=== PATIENT | female | born 1970 | race Caucasian/White ===

== ENCOUNTER 2018-02-27 16:14 | Observation (INO) | payer MEDICARE ==
[~2018-02-27] VITALS: Ht 167.6 cm; Wt 68.7 kg
[~2018-02-27 16:14] MED LIST: ABILIFY5 MG PO; ALBUTEROL SULF8.5 GM INH; ALBUTEROL0.63 MG/3 INH; ALDACTONE25 MG PO; CARAFATE1 GM/10 ML PO; DILAUDID4 MG PO; EFFEXOR XR150 MG PO; FUROSEMIDE20 MG PO; GABAPENTIN100 MG PO; HARVONI; K DUR10 MEQ PO; LASIX40 MG PO; METOPROLOL; ONDANSETRON; ONDANSETRON ODT8 MG PO; ORPHENADRINE C100 MG PO; PANTOPRAZOLE SO40 MG PO; PROAIR HFA INH8.5 GM INH; SPIRONOLACTONE25 MG PO; VITAMIN A; VITAMIN D; XIFAXAN550 MG PO; Z.0.EFFEXOR XR150 MG PO; Z.0.SOMA350 MG; Z.1.LANSOPRAZOLE30 M; ZOFRAN ODT4 MG PO; ZOLPIDEM; [UNRECOGNIZED DRUG - OTHER]; [UNRECOGNIZED DRUG - OTHER]; [UNRECOGNIZED DRUG - OTHER] PO
--- OUTSIDE RECORDS SUMMARY | 2018-02-27 16:17 | XMS REPORT | Clinical Summary ---
Author Author [facility] Address Unknown Phone Unavailable Care Team Providers Care All Terrain Vehicle Technician Name Role Phone Jayesh Carpenter MD PCP Allergies No Known Allergies Current Medications Prescription Sig. Disp. Refills Start End Date Status Date ondansetron (ZOFRAN) 4 MG Take 4 mg by mouth every Active tablet 8 (eight) hours as needed for nausea or vomiting. ERGOCALCIFEROL, VITAMIN Take 10,000 Units by Active D2, (VITAMIN D2 ORAL) mouth daily. riFAXimin (XIFAXAN) 550 Take 550 mg by mouth 2 Active mg tablet (two) times a day. furosemide (LASIX) 20 mg Take 20 mg by mouth Active tablet daily. pantoprazole (PROTONIX) Take 40 mg by mouth 2 Active 40 MG EC tablet (two) times a day. venlafaxine XR Take 300 mg by mouth 05/15/20 Discontin (EFFEXOR-XR) 150 MG 24 hr every morning. 17 ued capsule hydroCHLOROthiazide Take 25 mg by mouth once 0 09/23/20 05/15/20 Discontin (HYDRODIURIL) 25 MG daily. 16 17 ued tablet baclofen (LIORESAL) 10 MG Take 10 mg by mouth every 0 05/15/20 Discontin tablet 8 (eight) hours as needed 17 ued for muscle spasms. lactulose 10 gram/15 mL Take 20 g by mouth every 05/15/20 Discontin (15 mL) solution morning. 17 ued traMADol (ULTRAM) 50 mg Take 1 tablet (50 mg 20 tablet 0 01/29/20 tablet total) by mouth every 6 17 17 (six) hours as needed for moderate pain for up to 30 days. sucralfate (CARAFATE) 100 Take 10 mL (1 g total) by 1200 mL 0 06/19/20 mg/mL suspension mouth 4 (four) times a 17 17 day before meals and nightly for 30 days. dicyclomine (BENTYL) 20 Take 1 tablet (20 mg 90 tablet 0 05/22/20 mg tablet total) by mouth 3 (three) 17 17 times a day for 30 days. metoprolol tartrate Take 1 tablet (25 mg 60 tablet 0 05/22/20 (LOPRESSOR) 25 mg tablet total) by mouth 2 (two) 17 17 times a day for 30 days. lactulose 20 gram/30 mL Take 30 mL (20 g total) 500 mL 1 05/22/20 solution by mouth 2 (two) times a 17 17 day as needed (constipation) for up to 30 days. oxymetazoline (AFRIN) 2 sprays into each 15 mL 0 05/22/20 05/25/20 0.05 % nasal spray nostril 2 (two) times a 17 17 day for 3 days. sennosides-docusate Take 2 tablets by mouth 60 tablet 0 05/22/20 sodium (SENNA WITH daily for 30 days. 17 DOCUSATE SODIUM) 8.6-50 mg per tablet Active Problems Problem Noted Date Cirrhosis 05/19/2017 Generalized abdominal pain 10/18/2016 Polysubstance abuse 07/29/2016 Alcohol use disorder, severe, dependence 07/29/2016 Marijuana use, continuous 07/29/2016 Cocaine dependence 07/29/2016 Depressive disorder 07/29/2016 Hepatic encephalopathy 07/26/2016 Chronic hepatitis C without hepatic coma 05/19/2016 Malnutrition 05/19/2016 Pleural effusion associated with hepatic disorder 05/19/2016 Anemia of chronic disease 05/19/2016 Ascites 05/19/2016 Portal hypertension 05/19/2016 Chronic hepatitis C with cirrhosis Overview: Started Harvoni x24 weeks 11/2015 Encounters Date Type Specialty Care Team Description 11/25/2017 Emergency Emergency Medicine 05/18/2017 [facility] General Internal Medicine Des Mike MD - Encounter Sher Wang MD 05/22/2017 Luis Bautista MD Daniel, Jamuna Varughese, MD 05/15/2017 Emergency Emergency Medicine Travis, Vicki Turcios, Hepatic cirrhosis due to chronic hepatitis C infection (Primary Dx); Chronic pain syndrome; Epistaxis; Easy bruising after 02/26/2017 Social History Tobacco Use Types Packs/Day Years Used Date Current Every Day Smoker Cigarettes Alcohol Use Drinks/Week oz/Week Comments No On rehab for alcohol/substance abuse Sex Assigned at Date Recorded Not on file Last Filed Vital Signs Vital Sign Reading Time Taken Blood Pressure 137/84 11/25/2017 8:11 PM SWAGING MACHINE OPERATOR Pulse 77 11/25/2017 8:11 PM SWAGING MACHINE OPERATOR Temperature 37.4 C (99.3 F) 11/25/2017 8:11 PM SWAGING MACHINE OPERATOR Respiratory Rate 23 11/25/2017 8:11 PM SWAGING MACHINE OPERATOR Oxygen Saturation 97% 11/25/2017 8:11 PM SWAGING MACHINE OPERATOR Inhaled Oxygen - - Concentration Weight 74.8 kg (165 lb) 11/25/2017 8:09 PM SWAGING MACHINE OPERATOR Height 167.6 cm (5' 6") 11/25/2017 8:09 PM SWAGING MACHINE OPERATOR Body Mass Index 26.63 11/25/2017 8:09 PM SWAGING MACHINE OPERATOR Plan of Treatment Health Maintenance Due Date Last Done Comments PAP SMEAR 1990 INFLUENZA VACCINE 06/06/2018 Results * XR Abdomen 1 Vw Portable (05/22/2017 5:57 PM) Specimen Performing Laboratory [facility] [address] [place] [address] Narrative EXAMINATION:XR ABDOMEN 1 VW PORTABLE CLINICAL HISTORY:ABDOMINAL PAIN COMPARISON:None. IMPRESSION: Large amount retained stool in colon, constipation is suspected The gallbladder has been removed Degenerative changes are present throughout the bony structures without evidence of a suspicious focal lesion. [facility]-[id number] Procedure Note Interface, Radiology Results Incoming - 05/22/2017 6:11 PM CDT EXAMINATION: XR ABDOMEN 1 VW PORTABLE CLINICAL HISTORY: ABDOMINAL PAIN COMPARISON: None. IMPRESSION: Large amount retained stool in colon, constipation is suspected The gallbladder has been removed Degenerative changes are present throughout the bony structures without evidence of a suspicious focal lesion. [facility]-[id number] * US Abdominal Limited (05/22/2017 11:45 AM) Only the most recent of 2 results within the time period is included. Specimen Performing Laboratory [facility] [address] [place] [address] Narrative EXAMINATION:US ABDOMINAL LIMITED CLINICAL HISTORY:Evaluation for paracentesis COMPARISON:None. IMPRESSION: 1.Limited sonographic evaluation to assess the 4 quadrants of the abdomen was performed. No evidence to suggest ascites. [facility]-[id number] Procedure Note [facility], Radiology Results - 05/22/2017 1:09 PM CDT EXAMINATION: US ABDOMINAL LIMITED CLINICAL HISTORY: Evaluation for paracentesis COMPARISON: None. IMPRESSION: 1. Limited sonographic evaluation to assess the 4 quadrants of the abdomen was performed. No evidence to suggest ascites. [facility]-[id number] * Estimated GFR (05/22/2017 5:00 AM) Only the most recent of 6 results within the time period is included. Component Value Ref Range GFR Non Af Amer >90 mL/min/1.73 m2 GFR Af Amer >90 mL/min/1.73 m2 Comment: Chronic kidney disease: <60 mL/min/1.73m2 Kidney failure: <15 mL/min/1.73m2 The estimated GFR is calculated from the IDMS-traceable Modification of Diet in Renal Disease Equation. The accuracy of the calculation is poor when the creatinine is normal. Calculated values >90 mL/min/1.73m2 are not reported. This equation has not been validated in children (<18 years), women, the elderly (>70 years), or ethnic groups other than Caucasians and Americans. Specimen Performing Laboratory Plasma specimen [facility] DEPARTMENT OF PATHOLOGY AND GENOMIC MEDICINE [address] [place] [address] * Prothrombin time with INR (05/22/2017 5:00 AM) Only the most recent of 6 results within the time period is included. Component Value Ref Range Prothrombin time 16.4 (H) 12.0 - 15.0 sec INR 1.3 Comment: The International Normalized Ratio (INR) is a therapeutic monitoring tool for patients who are stable on oral anticoagulant therapy. An INR of 2.0-3.0 is suggested for deep vein thrombosis/pulmonary embolism. Specimen Performing Laboratory Blood [facility] DEPARTMENT OF PATHOLOGY AND GENOMIC MEDICINE [address] [place] [id number] * CBC with platelet and differential (05/22/2017 5:00 AM) Only the most recent of 6 results within the time period is included. Component Value Ref Range WBC 5.99 4.50 - 11.00 k/uL RBC 3.62 (L) 4.20 - 5.50 m/uL HGB 12.5 12.0 - 16.0 g/dL HCT 36.0 (L) 37.0 - 47.0 % MCV 99.4 82.0 - 100.0 fL MCH 34.5 (H) 27.0 - 34.0 pg MCHC 34.7 31.0 - 37.0 g/dL RDW - SD 60.0 (H) 37.0 - 55.0 fL MPV 13.3 (H) 8.8 - 13.2 fL Platelet count 103 (L) 150 - 400 k/uL Nucleated RBC 0.00 /100 WBC Neutrophils 28.2 (L) 39.0 - 69.0 % Lymphocytes 45.1 (H) 25.0 - 45.0 % Monocytes 14.9 (H) 0.0 - 10.0 % Eosinophils 10.4 (H) 0.0 - 5.0 % Basophils 1.2 (H) 0.0 - 1.0 % Immature granulocytes 0.2Comment: "Immature granulocytes" 0.0 - 1.0 % (promyelocytes, myelocytes, metamyelocytes) Specimen Performing Laboratory Blood [facility] DEPARTMENT OF PATHOLOGY AND [facility] MEDIC[facility] [address] [place] [address] * Hepatic function panel (05/22/2017 5:00 AM) Only the most recent of 3 results within the time period is included. Component Value Ref Range Albumin 2.5 (L) 3.5 - 5.0 g/dL Total bilirubin 1.7 (H) 0.0 - 1.2 mg/dL Bilirubin direct 0.9 (H) 0.0 - 0.3 mg/dL Alkaline phosphatase 207 (H) 35 - 104 U/L Protein 6.7 6.3 - 8.3 g/dL Comment: [place] 4.6-7.0 g/dL 1 week 4.4-7.6 g/dL 7 months-1year 5.1-7.3 g/dL 1-2 years 5.6-7.5 g/dL >3 years 6.0-8.0 g/dL 18-150 6.3-8.3 g/dL ALT 87 (H) 5 - 50 U/L AST 172 (H) 10 - 35 U/L Specimen Performing Laboratory Plasma specimen [facility] DEPARTMENT OF PATHOLOGY AND [facility] [address] [place] [address] * Basic metabolic panel (05/22/2017 5:00 AM) Only the most recent of 2 results within the time period is included. Component Value Ref Range Sodium 140 135 - 148 mEq/L Potassium 4.0 3.5 - 5.0 mEq/L Chloride 106 98 - 112 mEq/L CO2 23 (L) 24 - 31 mEq/L Anion gap 11 7 - 15 mEq/L Comment: Starting from February , anion gap calculation no longer incorporates potassium. Please note the change. BUN 7 6 - 20 mg/dL Creatinine 0.6 0.5 - 0.9 mg/dL Glucose 92 65 - 99 mg/dL Calcium 8.2 (L) 8.3 - 10.2 mg/dL Specimen Performing Laboratory Plasma specimen [facility] DEPARTMENT OF PATHOLOGY AND GENOMIC MEDICINE [address] [place] [address] * Bilirubin direct (05/21/2017 5:58 AM) Component Value Ref Range Bilirubin direct 1.2 (H) 0.0 - 0.3 mg/dL Specimen Performing Laboratory Plasma specimen [facility] DEPARTMENT OF PATHOLOGY AND GENOMIC MEDICINE [address] [place] [id number] * Comprehensive metabolic panel (05/21/2017 5:58 AM) Only the most recent of 4 results within the time period is included. Component Value Ref Range Sodium 140 135 - 148 mEq/L Potassium 3.7 3.5 - 5.0 mEq/L Chloride 106 98 - 112 mEq/L CO2 24 24 - 31 mEq/L Anion gap 10 7 - 15 mEq/L Comment: Starting from February , anion gap calculation no longer incorporates potassium. Please note the change. BUN 7 6 - 20 mg/dL Creatinine 0.5 0.5 - 0.9 mg/dL Glucose 88 65 - 99 mg/dL Calcium 8.2 (L) 8.3 - 10.2 mg/dL Protein 6.7 6.3 - 8.3 g/dL Comment: 4.6-7.0 g/dL 1 week 4.4-7.6 g/dL 7 months-1year 5.1-7.3 g/dL 1-2 years 5.6-7.5 g/dL >3 years 6.0-8.0 g/dL 18-150 6.3-8.3 g/dL Albumin 2.6 (L) 3.5 - 5.0 g/dL A/G ratio 0.6 (L) 0.7 - 3.8 Alkaline phosphatase 150 (H) 35 - 104 U/L AST 156 (H) 10 - 35 U/L ALT 84 (H) 5 - 50 U/L Total bilirubin 2.3 (H) 0.0 - 1.2 mg/dL Specimen Performing Laboratory Plasma specimen [facility] DEPARTMENT OF PATHOLOGY AND GENOMIC MEDICINE [address] [place] [address] * Urine drugs of abuse screen (05/19/2017 3:30 PM) Component Value Ref Range Amphetamine screen, urine Negative Barbiturate screen, urine Negative Benzodiazepine screen, Negative urine Cannabinoid screen, urine Positive (A) Cocaine screen, urine Negative Methadone metabolite Negative (EDDP), urine Opiates screen, urine Negative Oxycodone screen, urine Negative Phencyclidine screen, Negative urine Tricyclic screen, urine Negative Comment: Drug screen minimum concentration of detectability Amphetamines 1000 ng/mL Barbiturates 200 ng/mL Benzodiazepines 300 ng/mL Cocaine 300 ng/mL Methadone 3 00 ng/mL Opiates 300 ng/mL Oxycodone 3 00 ng/mL Phencyclidine 25 ng/mL Cannabinoids 50 ng/mL Tricyclics 1000 ng/mL Negative test results indicates presumptive evidence of lack of clinically significant drug concentration in this urine specimen. Positive test results are presumptive evidence of clinically significant drug concentration in this urine specimen. Testing performed for medical purposes only. Specimen Performing Laboratory Urine [facility] [place] [address] * Hepatitis C virus quantitative by PCR (05/19/2017 6:53 AM) Component Value Ref Range Hepatitis C quantitative, 1,290,000 (A) Not-Detected IU/mL PCR Hepatitis C quantitative, See link below for PDF Lab ReportComment: Case PCR Number: [id number] Specimen Performing Laboratory Blood [facility] DEPARTMENT OF PATHOLOGY AND GENOMIC MEDICINE [address] [place] [address] * XR Chest 2 Vw (05/18/2017 7:03 PM) Specimen [place] [address] Narrative EXAMINATION:XR CHEST 2 VW CLINICAL HISTORY:46 years Female Cough, hemoptysis [facility] COMPARISON:01/09/2017 IMPRESSION: 1.Heart size is slightly prominent. Central vasculature is normal. 2.Mild prominence of the interstitium, probably some chronic change. No convincing consolidation or effusion. 3.Old right-sided rib fractures. Surgical clips over the upper abdomen. [facility]-[id number] Procedure Note Interface, Radiology Results Incoming - 05/18/2017 7:10 PM CDT EXAMINATION: XR CHEST 2 VW CLINICAL HISTORY:46 years Female Cough, hemoptysis [facility] COMPARISON: 01/09/2017 IMPRESSION: 1. Heart size is slightly prominent. Central vasculature is normal. 2. Mild prominence of the interstitium, probably some chronic change. No convincing consolidation or effusion. 3. Old right-sided rib fractures. Surgical clips over the upper abdomen. [facility]-[id number] * CT Abdomen Pelvis W Contrast (05/18/2017 6:53 PM) Only the most recent of 2 results within the time period is included. Specimen Performing Laboratory [facility] [address] [place] [address] Narrative EXAMINATION:CT ABDOMEN PELVIS W CONTRAST CLINICAL HISTORY:ABDOMINAL PAIN TECHNIQUE: Multiple axial images of the abdomen and pelvis were obtained following intravenous administration of iodinated contrast. Sagittal and coronal computerized reformatted images were also obtained. CT images were obtained using low-dose technique with automated exposure control. COMPARISON:05/15/2017 IMPRESSION: 1.Status post cholecystectomy. There is no biliary duct dilation. 2.Status post splenectomy. Couple small splenule is noted in the left upper abdomen. 3.Liver, pancreas, adrenal glands and kidneys are within normal limits. Portal vein and splenic vein are patent. Small periesophageal varices present. There is minimal nonspecific haziness in the mesenteric root. 4.There is no evidence of intestinal obstruction or inflammation. Appendix is normal. 5.There is no abdominal or pelvic adenopathy or ascites. Aorta is normal in caliber. 6.Bladder is unremarkable. Status post hysterectomy. There are no adnexal masses. 7.Lung bases are clear. Healed and ununited right rib fractures noted. [facility]-[id number] Procedure Note Interface, Radiology Results Incoming - 05/18/2017 8:31 PM CDT EXAMINATION: CT ABDOMEN PELVIS W CONTRAST CLINICAL HISTORY: ABDOMINAL PAIN TECHNIQUE: Multiple axial images of the abdomen and pelvis were obtained following intravenous administration of iodinated contrast. Sagittal and coronal computerized reformatted images were also obtained. CT images were obtained using low-dose technique with automated exposure control. COMPARISON: 05/15/2017 IMPRESSION: 1. Status post cholecystectomy. There is no biliary duct dilation. 2. Status post splenectomy. Couple small splenule is noted in the left upper abdomen. 3. Liver, pancreas, adrenal glands and kidneys are within normal limits. Portal vein and splenic vein are patent. Small periesophageal varices present. There is minimal nonspecific haziness in the mesenteric root. 4. There is no evidence of intestinal obstruction or inflammation. Appendix is normal. 5. There is no abdominal or pelvic adenopathy or ascites. Aorta is normal in caliber. 6. Bladder is unremarkable. Status post hysterectomy. There are no adnexal masses. 7. Lung bases are clear. Healed and ununited right rib fractures noted. [facility]-[id number] * Urine culture (05/18/2017 3:20 PM) Component Value Ref Range Urine culture SEE COMMENTComment: Bacteriuria screen negative. Specimen Performing Laboratory [facility] DEPARTMENT OF PATHOLOGY AND GENOMIC MEDICINE [address] [place] [address] * Ova & parasites, gross examination (05/18/2017 1:00 PM) Component Value Ref Range Ova & parasites gross Brown formed exam Comment: Specimen Information Specimen Source: Stool Specimen Site: Nonpreserved Specimen Performing Laboratory Stool - Nonpreserved [facility] DEPARTMENT OF PATHOLOGY AND GENOMIC MEDICINE [address] [place] [address] * Ova & parasites, trichrome stain (05/18/2017 1:00 PM) Component Value Ref Range Ova & parasites trichrome No ova or Parasites seen. stain Comment: Specimen Information Specimen Source: Stool Specimen Site: Nonpreserved Specimen Performing Laboratory [facility] DEPARTMENT OF PATHOLOGY AND GENOMIC MEDICINE [address] [place] [address] * Urinalysis screen and microscopy, with reflex to culture (05/18/2017 1:00 PM) Component Value Ref Range Specimen site Clean catch Color, UA Yellow Appearance, UA Clear Specific gravity, UA 1.012 1.001 - 1.035 pH, UA 7.0 5.0 - 8.5 Protein, UA Negative Negative Glucose, UA Negative Negative Ketones, UA Negative Negative Bilirubin, UA Negative Negative Blood, UA Negative Negative Nitrite, UA Negative Negative Urobilinogen, UA <2.0 <2.0 Leukocyte esterase, UA Negative Negative Epithelial cells, UA 3 /HPF WBC, UA 1 0 - 4 /HPF RBC, UA <1 0 - 2 /HPF Bacteria, UA Few None seen Yeast, UA None seen Yeast with pseudohyphae, None seen UA Specimen Performing Laboratory Urine [facility] DEPARTMENT OF PATHOLOGY AND [address] [address] * Ova & parasites, concentrated examination (05/18/2017 1:00 PM) Component Value Ref Range Ova & parasites No Ova or Parasites seen. concentrated exam Comment: Specimen Information Specimen Source: Stool Specimen Site: Nonpreserved Specimen Performing Laboratory [facility] [place] [address] * Fecal leukocytes smear (05/18/2017 1:00 PM) Component Value Ref Range Fecal leukocytes Rare fecal leukocytes Comment: Specimen Information Specimen Source: Stool Specimen Site: Nonpreserved Specimen Performing Laboratory [facility] [place] [address] * Ova & parasites, direct examination (05/18/2017 1:00 PM) Component Value Ref Range Ova & parasites direct Direct examination not performed on formed stools. exam Comment: Specimen Information Specimen Source: Stool Specimen Site: Nonpreserved Specimen Performing Laboratory [facility] [place] [address] * Blood culture, aerobic & anaerobic (05/18/2017 12:57 PM) Only the most recent of 2 results within the time period is included. Component Value Ref Range Blood culture isolate No growth after 5 days of incubation. Comment: Specimen Information Specimen Source: Blood Specimen Site: Unspecified Specimen Performing Laboratory Blood [facility] [place] [address] * Alpha fetoprotein (05/18/2017 12:56 PM) Component Value Ref Range Alpha fetoprotein 12.0 (H) 0.0 - 8.3 ng/mL Comment: The Hieu 8000 AFP immunoassay was used. Results obtained with different assay methods or kits should not be used interchangeably and may be different. Specimen Performing Laboratory Serum [facility] DEPARTMENT [place] [address] * Phosphorus level (05/18/2017 12:56 PM) Component Value Ref Range Phosphorus 2.4 2.4 - 4.5 mg/dL Specimen Performing Laboratory Plasma specimen [facility] [place] [address] * Magnesium level (05/18/2017 12:56 PM) Only the most recent of 2 results within the time period is included. Component Value Ref Range Magnesium 2.1 1.6 - 2.6 mg/dL Specimen Performing Laboratory Plasma specimen [facility] DEPARTMENT OF PATHOLOGY AND GENOMIC MEDICINE [address] [place] [address] * Partial thromboplastin time, activated (05/15/2017 12:25 PM) Component Value Ref Range PTT 34.5 23.0 - 36.0 sec Comment: PTT therapeutic range for unfractionated heparin is 61.0-112.0 seconds which corresponds to Anti-Xa 0.3-0.7 U/ml. Specimen Performing Laboratory Blood [facility] DEPARTMENT OF PATHOLOGY AND GENOMIC MEDICINE [address] [address] * Type and screen (05/15/2017 12:25 PM) Component Value Ref Range ABO grouping A Rh type POS Antibody screen NEG Specimen Performing Laboratory Blood [facility] DEPARTMENT OF PATHOLOGY AND GENOMIC MEDICINE [address] [place] [address] * Lipase level (05/15/2017 12:25 PM) Component Value Ref Range Lipase 35 13 - 60 U/L Specimen Performing Laboratory Plasma specimen [facility] DEPARTMENT OF PATHOLOGY AND GENOMIC MEDICINE [address] [address] after 02/26/2017 Insurance Payer Benefit Subscriber ID Type Phone Address Plan / Group [facility] MEDICARE AARP xxxxxxxxx [facility] [place] [place]CR Home: [address] [place], [place] [phone] [place] [address] [address] [facility] [facility] 1970 Home: [address] [place], [place] [phone] [place] [address]
--- OUTSIDE RECORDS SUMMARY | 2018-02-27 16:17 | XMS REPORT | Continuity of Care Document ---
Author Author [facility] Organization [facility] Address [address] [place] [address] Phone Unavailable Care Team Providers Care Independent Film Maker Name Role Phone KATIE ALICEA MD PCP Insurance Providers Guarantor Froy Streeter Address [address] [place] [address] Email [email or web address] Payer [employer] Medicare Complete Policy Number [id number] Subscriber's Name Froy Streeter Relationship 18 Self / Same As Patient Effective Date 17 Advance Directives Directive Response Recorded Date/Time Does the patient have an advance directive? No 01/29/18 11:37pm If yes, is advance directive on file with [facility]? No 01/29/18 11:37pm If not on [facility] with [facility] will patient provide a copy? No 01/29/18 11:37pm Do you have a Directive to Physician? No 01/29/18 1:27pm Do you have a Medical Power of Handwriting Expert? No 01/29/18 1:27pm Do you have an out of hospital Do Not Resuscitate Order? No 01/29/18 1:27pm Do you have any special needs we should be aware of? No 01/29/18 1:27pm Do you have a support person here with you today? Yes 01/29/18 1:27pm Did patient receive Notice of Privacy Practices? Yes 01/29/18 1:27pm Did patient receive patient rights and responsibilities? Yes 01/29/18 1:27pm Problems Medical Problem Onset Date Status Abdominal pain Unknown Ascites due to alcoholic cirrhosis 05/15/2015 Acute Nausea & vomiting Unknown Medications Current Home Medications Medication Dose Units Route Directions Days Qty Instructions Start Date Furosemide (Lasix) 40 Mg Tablet 40 Mg Oral Daily as needed for Nasal Congestion 30 Tab Harvoni Ondansetron (Zofran Odt) 4 Mg Tab.rapdis 4 Mg Oral Twice A Day Pantoprazole Sodium (Protonix) 40 Mg Tablet.dr 40 Mg Oral Daily Rifaximin (Xifaxan) 550 Mg Tablet 550 Mg Oral Twice A Day Venlafaxine Hcl (Effexor Xr) 150 Mg Cap.er.24h 150 Mg Oral Daily Past Home Medications Medication Directions Ordered Status Albuterol Sulfate (Albuterol Sulfate Hfa) 8.5 Gm Hfa.aer.ad, 2 Sprays Inhalation Every 4 Hours as needed for Shortness Of Breath Discontinued Albuterol Sulfate 0.63 Mg/3 Ml Vial.neb, 0.63 Mg Inhalation Four Times Daily as needed for Shortness Of Breath Discontinued Albuterol Sulfate (Proair Hfa Inhaler*) 8.5 Gm Inh, 2 Sprays Inhalation Every 4 Hours as needed for Shortness Of Breath Discontinued Aripiprazole (Abilify) 5 Mg Tablet, 5 Mg Oral Daily Discontinued Carisoprodol (Soma) 350 Mg Tablet, Discontinued Furosemide 20 Mg Tablet, 20 Mg Oral Daily Discontinued Gabapentin 100 Mg Capsule, 100 Mg Oral Three Times A Day Discontinued Hydromorphone Hcl (Dilaudid) 4 Mg Tablet, 4 Mg Oral Bidprn Discontinued Hydromorphone Hcl 4 Mg Tablet, Discontinued Lansoprazole 30 Mg Capsule., Discontinued Metoprolol , Discontinued Ondansetron (Ondansetron Odt) 8 Mg Tab.rapdis, 4 Mg Oral Daily Discontinued Ondestaron , Discontinued Orphenadrine Citrate (Norflex) 100 Mg Tab, 100 Mg Oral Every 12 Hours Discontinued Oxymorphone Hcl (Opana) 10 Mg Tablet, Oral Daily Discontinued Potassium Chloride (K Dur*) 10 Meq Tabcr, 20 Meq Oral Daily Discontinued Spironolactone 25 Mg Tablet, 50 Mg Oral Daily Discontinued Spironolactone (Aldactone) 25 Mg Tablet, 50 Mg Oral Twice A Day Discontinued Sucralfate (Carafate) 1 Gm/10 Ml Oral.susp, 1 Gm Oral Daily Discontinued Venlafaxine Hcl (Effexor Xr) 150 Mg Cap.sr.24h, Oral Daily Discontinued Vitamin A , Discontinued Vitamin D , Discontinued Xisaxin , Discontinued Zolpidem , Discontinued Social History Social History Problem Response Recorded Date/Time Onset Date Status Hx Psychiatric Problems Y - pain 01/29/2018 11:37pm Not Applicable Not Applicable Hx Eating Disorder No 01/29/2018 11:37pm Not Applicable Not Applicable Hx Substance Use Disorder No 01/29/2018 11:37pm Not Applicable Not Applicable Hx Depression Yes 01/29/2018 11:37pm Not Applicable Not Applicable Hx Alcohol Use Y - drank on monday of mother 01/29/2018 11:37pm Not Applicable Not Applicable Hx Substance Use Treatment No 01/29/2018 11:37pm Not Applicable Not Applicable Hx Physical Abuse No 01/29/2018 11:37pm Not Applicable Not Applicable Smoking Status Start Date Stop Date Former smoker Hospital Discharge Instructions No hospital discharge instruction information available. Plan of Care Discharge Date 02/04/18 10:20am Disposition HOME, SELF-CARE Instructions/Education Provided Abdominal Pain - Adult Prescriptions See Medication Section Additional Instructions/Education Cardiac Diet Functional Status Query Response Date Recorded Ambulation Ability Minimum Assistance January 29, 2018 11:42pm Toileting Ability Independent February 03, 2018 6:12pm Allergies, Adverse Reactions, Alerts No known allergies. Immunizations No immunization information available. Vital Signs Acute Vital Signs Vital Response Date/Time Temperature (Fahrenheit) 98.1 degrees F (97.6 - 99.5) 02/04/2018 4:00am Pulse Pulse Rate (adult) 68 bpm (60 - 90) 02/04/2018 4:00am Respiratory Rate 18 bpm (12 - 24) 02/04/2018 4:00am Blood Pressure 146/81 mm Hg 02/04/2018 4:00am Height 5 ft 6 in 01/29/2018 11:29am Weight 199.50 lb 02/04/2018 12:00am Body Mass Index 32.2 kg/m^2 02/04/2018 12:00am Results Laboratory Results Test Name Result Units Flags Reference Collection Date/Time Result Date/ Time Comments Urine Amorphous Sediment MANY H FEW 06/14/2017 6:49pm 06/14/2017 10: 14pm Urine Test NEGATIVE NEGATIVE 06/14/2017 6:49pm 06/14/2017 10:07pm White Blood Count 7.63 x10e3/uL 4.8-10.8 02/03/2018 6:3002/03/2018 8 :11am Red Blood Count 3.57 x10e6/uL L 3.6-5.1 02/03/2018 6:3002/03/2018 8: 11am Hemoglobin 12.1 g/dL 12.0-16.0 02/03/2018 6:3002/03/2018 8:11am Hematocrit 33.1 % L 34.2-44.1 02/03/2018 6:3002/03/2018 8:11am Mean Corpuscular Volume 92.7 fL 81-99 02/03/2018 6:3002/03/2018 8: 11am Mean Corpuscular Hemoglobin 33.9 pg H 28-32 02/03/2018 6:302017 8:11am Mean Corpuscular Hemoglobin Concent 36.6 g/dL H 31-35 02/03/2018 6:3002/03/2018 8:11am Red Cell Distribution Width 19.6 % H 11.7-14.4 02/03/2018 6:302017 8:11am Platelet Count 110 x10e3/uL L 140-360 02/03/2018 6:3002/03/2018 8: 11am Neutrophils (%) (Auto) 36.0 % L 38.7-80.0 02/03/2018 6:3002/03/2018 8 :11am Lymphocytes (%) (Auto) 47.2 % H 18.0-39.1 02/03/2018 6:3002/03/2018 8 :11am Monocytes (%) (Auto) 13.8 % H 4.4-11.3 02/03/2018 6:02/03/2018 8: 11am Eosinophils (%) (Auto) 1.8 % 0.0-6.0 02/03/2018 6:02/03/2018 8: 11am Basophils (%) (Auto) 0.8 % 0.0-1.0 02/03/2018 6:02/03/2018 8:11am IM GRANULOCYTES % 0.4 % 0.0-1.0 02/03/2018 6:02/03/2018 8:11am Neutrophils # (Auto) 2.8 2.1-6.9 02/03/2018 6:02/03/2018 8:11am Lymphocytes # (Auto) 3.6 H 1.0-3.2 02/03/2018 6:02/03/2018 8: 11am Monocytes # (Auto) 1.1 H 0.2-0.8 02/03/2018 6:02/03/2018 8:11am Eosinophils # (Auto) 0.1 0.0-0.4 02/03/2018 6:02/03/2018 8:11am Basophils # (Auto) 0.1 0.0-0.1 02/03/2018 6:02/03/2018 8:11am Absolute Immature Granulocyte (auto 0.03 x10e3/uL 0-0.1 02/03/2018 6: 02/03/2018 8:11am Differential Total Cells Counted 100 02/01/2018 8:0702/01/2018 11:49am Neutrophils % (Manual) 45 % 40-74 02/01/2018 8:0702/01/2018 11:49am Band Neutrophils % 2 % 01/30/2018 6:50am 01/30/2018 12:19pm Lymphocytes % (Manual) 44 % 19-48 02/01/2018 8:0702/01/2018 11:49am Monocytes % (Manual) 9 % 3.4-9.0 02/01/2018 8:02/01/2018 11:49am Eosinophils % (Manual) 2 % 0-7 02/01/2018 8:0702/01/2018 11:49am Reactive Lymphocytes 1 01/30/2018 6:50am 01/30/2018 12:19pm Smudge Cells FEW 02/01/2018 8:07am 02/01/2018 11:49am Platelet Estimate SLIGHTLY DECREASED 02/01/2018 8:07am 02/01/2018 11:49am Platelet Morphology Comment NORMAL 02/01/2018 8:07am 02/01/2018 11: 49am Hypochromasia SLIGHT 02/01/2018 8:07am 02/01/2018 11:49am Poikilocytosis SLIGHT 02/01/2018 8:07am 02/01/2018 11:49am Anisocytosis SLIGHT 02/01/2018 8:07am 02/01/2018 11:49am Macrocytosis MODERATE 02/01/2018 8:07am 02/01/2018 11:49am Target Cells FEW 02/01/2018 8:07am 02/01/2018 11:49am Red Cell Morphology Comment ABNORMAL 02/01/2018 8:07am 02/01/2018 11:49am Prothrombin Time 18.5 seconds H 11.9-14.5 02/01/2018 5:00am 02/01/2018 5 :37am Prothromb Time International Ratio 1.67 02/01/2018 5:00am 2017 5:37am Oral Anticoagulant Therapy INR Values: 1. Low Intensity Therapy 1.5 - 2.0 2. Moderate Intensity Therapy 2.0 - 3.0 3. High Intensity Therapy(1) 2.5 - 3.5 4. High Intensity Therapy(2) 3.0 - 4.0 5. Panic Value INR > 5.0 Activated Partial Thromboplast Time 32.0 seconds 23.8-35.5 02/01/2018 5: 00am 02/01/2018 5:37am Urine Color ORANGE H YELLOW 01/29/2018 11:35am 01/29/2018 12:24pm Urine Clarity SL CLOUDY CLEAR 01/29/2018 11:35am 01/29/2018 12:24pm Urine Specific Victor 1.020 1.010-1.025 01/29/2018 11:35am 2017 12:10pm Urine pH 6 5 - 7 01/29/2018 11:35am 01/29/2018 12:10pm Urine Leukocyte Esterase TRACE H NEGATIVE 01/29/2018 11:35am 2017 12:10pm Urine Nitrite NEGATIVE NEGATIVE 01/29/2018 11:35am 01/29/2018 12: 10pm Urine Protein 1+ H NEGATIVE 01/29/2018 11:35am 01/29/2018 12:10pm Urine Glucose (UA) NEGATIVE NEGATIVE 01/29/2018 11:35am 01/29/2018 12 :10pm Urine Ketones TRACE H NEGATIVE 01/29/2018 11:35am 01/29/2018 12:10pm Urine Urobilinogen 12 mg/dL H 0.2 - 1 01/29/2018 11:35am 01/29/2018 12: 10pm Urine Bilirubin 3+ H NEGATIVE 01/29/2018 11:35am 01/29/2018 12:10pm Urine Blood 2+ H NEGATIVE 01/29/2018 11:35am 01/29/2018 12:10pm Urine WBC 6-10 /HPF H 0-5 01/29/2018 11:35am 01/29/2018 12:24pm Urine RBC 6-10 /HPF H 0-5 01/29/2018 11:35am 01/29/2018 12:24pm Urine Bacteria RARE /HPF NONE 01/29/2018 11:35am 01/29/2018 12:24pm Urine Epithelial Cells FEW /LPF NONE 01/29/2018 11:35am 01/29/2018 12: 24pm Urine Hyaline Casts 0-1 0-1 01/29/2018 11:35am 01/29/2018 12:24pm Urine Fine Granular Casts 1-5 H 0 01/29/2018 11:35am 01/29/2018 12: 24pm Sodium Level 135 mmol/L L 136-145 02/03/2018 6:30am 02/03/2018 8:49am Potassium Level 3.7 mmol/L 3.5-5.1 02/03/2018 6:30am 02/03/2018 8:49am Chloride Level 105 mmol/L 98-107 02/03/2018 6:30am 02/03/2018 8:49am Carbon Dioxide Level 27 mmol/L -02/03/2018 6:30am 02/03/2018 8: 49am Anion Gap 6.7 mmol/L L 8-16 02/03/2018 6:30am 02/03/2018 8:49am Blood Urea Nitrogen 6 mg/dL L 05-3102/03/2018 6:30am 02/03/2018 8:49am Creatinine 0.59 mg/dL 0.57-1.11 02/03/2018 6:3002/03/2018 8:49am BUN/Creatinine Ratio 10 6-25 02/03/2018 6:3002/03/2018 8:49am Estimat Glomerular Filtration Rate > 60 ML/MIN 60- 02/03/2018 6:30 8:49am Ranges were taken from the National Kidney Disease Education Program and the National [employer] literature. Reference ranges: 60 or greater: Normal 16-59 (for 3 consecutive months): Chronic kidney disease 15 or less: Kidney failure Glucose Level 67 mg/dL L 74-118 02/03/2018 6:3002/03/2018 8:49am Calcium Level 7.9 mg/dL L 8.4-10.2 02/03/2018 6:3002/03/2018 8:49am Magnesium Level 1.8 MG/DL 1.3-2.1 01/29/2018 1:00pm 01/29/2018 1:37pm Total Bilirubin 4.9 mg/dL H 0.2-1.2 02/03/2018 6:3002/03/2018 8:49am Aspartate Amino Transf (AST/SGOT) 135 IU/L H 5-34 02/03/2018 6:30 8:49am Alanine Aminotransferase (ALT/SGPT) 67 IU/L H 0-55 02/03/2018 6:30 8:49am Ammonia 113 UG/DL 31-123 01/29/2018 8:25pm 01/29/2018 8:51pm Total Protein 6.2 g/dL L 6.5-8.1 02/03/2018 6:3002/03/2018 8:49am Albumin 2.0 g/dL L 3.5-5.0 02/03/2018 6:3002/03/2018 8:49am Globulin 4.2 g/dL H 2.3-3.5 02/03/2018 6:3002/03/2018 8:49am Albumin/Globulin Ratio 0.5 L 0.8-2.0 02/03/2018 6:3002/03/2018 8: 49am Alkaline Phosphatase 140 IU/L 40-150 02/03/2018 6:30am 02/03/2018 8: 49am B-Type Natriuretic Peptide 59.3 pg/mL 0-100 01/29/2018 1:00pm 2017 1:40pm Creatine Kinase 57 IU/L 29-168 01/29/2018 1:00pm 01/29/2018 1:37pm Creatine Kinase MB 1.20 ng/mL 0-5.0 01/29/2018 1:00pm 01/29/2018 1: 43pm Troponin I 0.006 ng/mL 0-0.300 01/29/2018 1:00pm 01/29/2018 1:43pm Amylase Level 37 U/L 25-125 01/30/2018 6:50am 01/30/2018 8:10am Lipase 23 U/L 8-78 01/30/2018 6:50am 01/30/2018 8:10am Gamma Glutamyl Transpeptidase 48 IU/L 0-60 01/29/2018 1:00pm 2017 3:28am Performed at: [facility] [id number] Plate Glass Installer: Romel Waters MD, Phone: [phone] Procedures Procedure Status Date Provider(s) EGD with biopsy Completed 02/01/18 DIANN MATSON MD EGD with biopsy Completed 02/01/18 DIANN MATSON MD Computed tomography of abdomen and pelvis with contrast Active 01/29/18 MARCIANO PRIETO NP Magnetic resonance cholangiopancreatography (MRCP) without contrast Active MARCIANO PRIETO NP Encounters Encounter Location Arrival/Admit Date Discharge/Depart Date Attending Provider Discharged Inpatient [facility] 01/29/18 5:02pm 02/04/18 10:20am KATIE ALICEA MD Departed Emergency Room [facility] 06/14/17 5:53pm 12:25am JENNIFER MICHELLE MD
[2018-02-27] MEDS ORDERED: SODIUM CHLORIDE 0.9% 1000ML 1,000 ML IV STA (16:21)
[2018-02-27] MEDS ORDERED: MORPHINE SULFATE 4 MG/ML SYR IV STA (16:21)
[2018-02-27] MEDS ORDERED: ONDANSETRON HCL INJ 2 MG/ML VIAL IV STA (16:21)
[2018-02-27] MEDS ORDERED: MORPHINE SULFATE 2 MG/ML SYR ONE (16:57)
[2018-02-27 17:19] LABS: BASOPHILS # (AUTO) 0.1 (0.0-0.1); BASOPHILS % 0.8 % (0.0-1.0); EOSINOPHILS # (AUTO) 0.1 (0.0-0.4); EOSINOPHILS % 2.1 % (0.0-6.0); HEMATOCRIT 34.4 % (34.2-44.1); HEMOGLOBIN 12.2 g/dL (12.0-16.0); LYMPHOCYTES # (AUTO) 2.9 (1.0-3.2); LYMPHOCYTES % 47.6 % (18.0-39.1); MEAN CORPUSCULAR HEMOGLOBIN 34.3 pg (28-32); MEAN CORPUSCULAR HGB CONC 35.5 g/dL (31-35); MEAN CORPUSCULAR VOLUME 96.6 fL (81-99); MONOCYTES # (AUTO) 0.6 (0.2-0.8); MONOCYTES % 10.4 % (4.4-11.3); NEUTROPHILS # (AUTO) 2.4 (2.1-6.9); NEUTROPHILS % 38.9 % (38.7-80.0); PLATELET COUNT 108 x10e3/uL (140-360); RED BLOOD COUNT 3.56 x10e6/uL (3.6-5.1); RED CELL DISTRIBUTION WIDTH 17.6 % (11.7-14.4)
[2018-02-27] MEDS ORDERED: MORPHINE SULFATE 5 MG/ML VIAL IV ONE (17:30)
[2018-02-27 17:35] LABS: CLARITY,URINE CLEAR (CLEAR); COLOR,URINE AMBER (YELLOW)
[2018-02-27 17:36] LABS: BILIRUBIN,URINE NEGATIVE (NEGATIVE); KETONES,URINE NEGATIVE (NEGATIVE); LEUKOCYTE ESTERASE ,URINE NEGATIVE (NEGATIVE); NITRITE,URINE NEGATIVE (NEGATIVE); PROTEIN,URINE DIPSTICK NEGATIVE (NEGATIVE); URINE UROBILINOGEN 0.2 mg/dL (0.2 - 1)
[2018-02-27 17:41] LABS: ALANINE AMINOTRANSFERASE 71 IU/L (0-55); ALBUMIN 2.3 g/dL (3.5-5.0); ALBUMIN/GLOBULIN RATIO 0.5 (0.8-2.0); ALKALINE PHOSPHATASE 159 IU/L (40-150); ANION GAP 8.7 mmol/L (8-16); BLOOD UREA NITROGEN < 5 mg/dL (7-26); BUN/CREATININE RATIO 8 (6-25); CALCIUM 8.2 mg/dL (8.4-10.2); CARBON DIOXIDE 25 mmol/L (22-29); CHLORIDE 107 mmol/L (98-107); EST GLOMERULAR FILTRATION RATE > 60 ML/MIN (60-); GLUCOSE 125 mg/dL (74-118); LIPASE 52 U/L (8-78); SODIUM 138 mmol/L (136-145)
[2018-02-27 17:42] LABS: POTASSIUM 2.7 mmol/L (3.5-5.1)
[2018-02-27] MEDS ORDERED: MORPHINE SULFATE 2 MG/ML SYR IV NR (17:45)
[2018-02-27 17:49] LABS: EPITHELIAL CELLS,URINE RARE /LPF
--- NOTE | 2018-02-27 18:27 | Diagnostic Imaging Report ---
Exam: Abdominal film Clinical History: Abdominal pain Comparison: None. DISCUSSION: Frontal view of the abdomen shows a nonobstructive bowel gas pattern with mild amount of retained stool. Right upper quadrant clips. There are no abnormal calcifications. No acute bone abnormality. IMPRESSION: 1. Nonobstructive bowel gas pattern. Signed by: Dr. Frankie Ray M.D. on 02/27/2018 6:23 PM
[2018-02-27] MEDS ORDERED: POTASSIUM CHLORIDE 20MEQ/100ML 100 ML IV ONE (18:30)
[2018-02-27] MEDS ORDERED: ONDANSETRON HCL INJ 2 MG/ML VIAL IV PRN (18:45)
[2018-02-27] MEDS ORDERED: ONDANSETRON HCL 4 MG ORAL DISINTEGRATING TAB PO PRN (19:00)
[2018-02-27] MEDS: SODIUM CHLORIDE 0.9% 1000ML 1,000 ML IV SCH ×2 (19:06→23:05)
--- OUTSIDE RECORDS SUMMARY | 2018-02-27 20:29 | XMS REPORT | Clinical Summary ---
Author Author [facility] Organization [facility] Address Unknown Phone Unavailable Care Team Providers Care Certified Hyperbaric Technologist Name Role Phone Jayesh Carpenter MD PCP [...] Team Description 11/25/2017 Emergency Emergency Medicine 05/18/2017 [facility] General Internal Medicine Des Mike MD [...] Taken Blood Pressure 137/84 11/25/2017 8:11 PM MORTUARY OPERATIONS MANAGER Pulse 77 11/25/2017 8:11 PM MORTUARY OPERATIONS MANAGER Temperature 37.4 C (99.3 F) 11/25/2017 8:11 PM MORTUARY OPERATIONS MANAGER Respiratory Rate 23 11/25/2017 8:11 PM MORTUARY OPERATIONS MANAGER Oxygen Saturation 97% 11/25/2017 8:11 PM MORTUARY OPERATIONS MANAGER Inhaled Oxygen - - Concentration Weight 74.8 kg (165 lb) 11/25/2017 8:09 PM MORTUARY OPERATIONS MANAGER Height 167.6 cm (5' 6") 11/25/2017 8:09 PM MORTUARY OPERATIONS MANAGER Body Mass Index 26.63 11/25/2017 8:09 PM MORTUARY OPERATIONS MANAGER Plan of Treatment Health Maintenance Due Date Last Done Comments PAP SMEAR 1990 INFLUENZA VACCINE 06/06/2018 Results * XR Abdomen 1 Vw Portable (05/22/2017 5:57 PM) Specimen Performing Laboratory [facility] [address] [place] [address] Narrative EXAMINATION:XR ABDOMEN 1 VW PORTABLE CLINICAL HISTORY:ABDOMINAL PAIN COMPARISON:None. IMPRESSION: Large amount retained stool in colon, constipation is suspected The gallbladder has been removed Degenerative changes are present throughout the bony structures without evidence of a suspicious focal lesion. [facility]-[id number] Procedure Note Interface, Radiology Results Incoming - 05/22/2017 6:11 PM CDT EXAMINATION: XR ABDOMEN 1 VW PORTABLE CLINICAL HISTORY: ABDOMINAL PAIN COMPARISON: None. IMPRESSION: Large amount retained stool in colon, constipation is suspected The gallbladder has been removed Degenerative changes are present throughout the bony structures without evidence of a suspicious focal lesion. [facility]-[id number] * US Abdominal Limited (05/22/2017 11:45 AM) Only the most recent of 2 results within the time period is included. Specimen Performing Laboratory [facility] [address] [place] [address] Narrative EXAMINATION:US ABDOMINAL LIMITED CLINICAL HISTORY:Evaluation for paracentesis COMPARISON:None. IMPRESSION: 1.Limited sonographic evaluation to assess the 4 quadrants of the abdomen was performed. No evidence to suggest ascites. [facility]-[id number] Procedure Note [facility], Radiology Results - 05/22/2017 1:09 PM CDT EXAMINATION: US ABDOMINAL LIMITED CLINICAL HISTORY: Evaluation for paracentesis COMPARISON: None. IMPRESSION: 1. Limited sonographic evaluation to assess the 4 quadrants of the abdomen was performed. No evidence to suggest ascites. [facility]-[id number] * Estimated GFR (05/22/2017 5:00 AM) Only [...] and Americans. Specimen Performing Laboratory Plasma specimen [facility] DEPARTMENT OF PATHOLOGY AND GENOMIC MEDICINE [address] [place] [address] * Prothrombin time with INR (05/22/2017 5:00 [...] vein thrombosis/pulmonary embolism. Specimen Performing Laboratory Blood [facility] DEPARTMENT OF PATHOLOGY AND GENOMIC MEDICINE [address] [place] [address] * CBC with platelet and differential (05/22/2017 [...] (promyelocytes, myelocytes, metamyelocytes) Specimen Performing Laboratory Blood [facility] DEPARTMENT OF PATHOLOGY AND [facility] MEDICINE [address] [place] [address] * Hepatic function panel (05/22/2017 5:00 AM) Only the most recent of 3 results within the time period is included. Component Value Ref Range Albumin 2.5 (L) 3.5 - 5.0 g/dL Total bilirubin 1.7 (H) 0.0 - 1.2 mg/dL Bilirubin direct 0.9 (H) 0.0 - 0.3 mg/dL Alkaline phosphatase 207 (H) 35 - 104 U/L Protein 6.7 6.3 - 8.3 g/dL Comment: [place] 4.6-7.0 g/dL 1 week 4.4-7.6 g/dL 7 months-1year 5.1-7.3 g/dL 1-2 years 5.6-7.5 g/dL >3 years 6.0-8.0 g/dL 18-150 6.3-8.3 g/dL ALT 87 (H) 5 - 50 U/L AST 172 (H) 10 - 35 U/L Specimen Performing Laboratory Plasma specimen [facility] DEPARTMENT OF PATHOLOGY AND [facility] MEDICINE [address] [place] [address] * Basic metabolic panel (05/22/2017 5:00 AM) [...] 10.2 mg/dL Specimen Performing Laboratory Plasma specimen [facility] DEPARTMENT OF PATHOLOGY AND GENOMIC MEDICINE [address] [place] [address] * Bilirubin direct (05/21/2017 5:58 AM) Component Value Ref Range Bilirubin direct 1.2 (H) 0.0 - 0.3 mg/dL Specimen Performing Laboratory Plasma specimen [facility] DEPARTMENT OF PATHOLOGY AND GENOMIC MEDICINE [address] [place] [address] * Comprehensive metabolic panel (05/21/2017 5:58 AM) [...] 1.2 mg/dL Specimen Performing Laboratory Plasma specimen [facility] DEPARTMENT OF PATHOLOGY AND GENOMIC MEDICINE [address] [place] [address] * Urine drugs of abuse screen (05/19/2017 [...] medical purposes only. Specimen Performing Laboratory Urine [facility] [place] [address] * Hepatitis C virus quantitative by PCR (05/19/2017 6:53 AM) Component Value Ref Range Hepatitis C quantitative, 1,290,000 (A) Not-Detected IU/mL PCR Hepatitis C quantitative, See link below for PDF Lab ReportComment: Case PCR Number: [id number] Specimen Performing Laboratory Blood [facility] DEPARTMENT OF PATHOLOGY AND GENOMIC MEDICINE [address] [place] [address] * XR Chest 2 Vw (05/18/2017 7:03 PM) Specimen [place] [address] Narrative EXAMINATION:XR CHEST 2 VW CLINICAL HISTORY:46 years Female Cough, hemoptysis [facility] COMPARISON:01/09/2017 IMPRESSION: 1.Heart size is slightly prominent. Central vasculature is normal. 2.Mild prominence of the interstitium, probably some chronic change. No convincing consolidation or effusion. 3.Old right-sided rib fractures. Surgical clips over the upper abdomen. [facility]-[id number] Procedure Note Interface, Radiology Results Incoming - 05/18/2017 7:10 PM CDT EXAMINATION: XR CHEST 2 VW CLINICAL HISTORY:46 years Female Cough, hemoptysis [facility] COMPARISON: 01/09/2017 IMPRESSION: 1. Heart size is slightly prominent. Central vasculature is normal. 2. Mild prominence of the interstitium, probably some chronic change. No convincing consolidation or effusion. 3. Old right-sided rib fractures. Surgical clips over the upper abdomen. [facility]-[id number] * CT Abdomen Pelvis W Contrast (05/18/2017 6:53 PM) Only the most recent of 2 results within the time period is included. Specimen Performing Laboratory [facility] [address] [place] [address] Narrative EXAMINATION:CT ABDOMEN PELVIS W CONTRAST CLINICAL [...] Healed and ununited right rib fractures noted. [facility]-[id number] Procedure Note Interface, Radiology Results Incoming - [...] Healed and ununited right rib fractures noted. [id number] * Urine culture (05/18/2017 3:20 PM) Component Value Ref Range Urine culture SEE COMMENTComment: Bacteriuria screen negative. Specimen Performing Laboratory [facility] DEPARTMENT OF PATHOLOGY AND GENOMIC MEDICINE [address] [place] [address] * Ova & parasites, gross examination (05/18/2017 1:00 PM) Component Value Ref Range Ova & parasites gross Brown formed exam Comment: Specimen Information Specimen Source: Stool Specimen Site: Nonpreserved Specimen Performing Laboratory Stool - Nonpreserved [facility] DEPARTMENT OF PATHOLOGY AND GENOMIC MEDICINE [address] [place] [address] * Ova & parasites, trichrome stain (05/18/2017 1:00 PM) Component Value Ref Range Ova & parasites trichrome No ova or Parasites seen. stain Comment: Specimen Information Specimen Source: Stool Specimen Site: Nonpreserved Specimen Performing Laboratory [facility] DEPARTMENT OF PATHOLOGY AND GENOMIC MEDICINE [address] [place] [address] * Urinalysis screen and microscopy, with reflex [...] None seen UA Specimen Performing Laboratory Urine [facility] DEPARTMENT OF PATHOLOGY AND [address] [address] * Ova & parasites, concentrated examination (05/18/2017 1:00 PM) Component Value Ref Range Ova & parasites No Ova or Parasites seen. concentrated exam Comment: Specimen Information Specimen Source: Stool Specimen Site: Nonpreserved Specimen Performing Laboratory Stool [facility] [place] [address] * Fecal leukocytes smear (05/18/2017 1:00 PM) Component Value Ref Range Fecal leukocytes Rare fecal leukocytes Comment: Specimen Information Specimen Source: Stool Specimen Site: Nonpreserved Specimen Performing [facility] [place] [address] * Ova & parasites, direct examination (05/18/2017 1:00 PM) Component Value Ref Range Ova & parasites direct Direct examination not performed on formed stools. exam Comment: Specimen Information Specimen Source: Stool Specimen Site: Nonpreserved Specimen Performing Laboratory Stool [facility] [place] [address] * Blood culture, aerobic & anaerobic (05/18/2017 12:57 PM) Only the most recent of 2 results within the time period is included. Component Value Ref Range Blood culture isolate No growth after 5 days of incubation. Comment: Specimen Information Specimen Source: Blood Specimen Site: Unspecified Specimen Performing Laboratory Blood [facility] [place] [address] * Alpha fetoprotein (05/18/2017 12:56 PM) Component Value Ref Range Alpha fetoprotein 12.0 (H) 0.0 - 8.3 ng/mL Comment: The Hieu 8000 AFP immunoassay was used. Results obtained with different assay methods or kits should not be used interchangeably and may be different. Specimen Performing Laboratory Serum [facility] DEPARTMENT [place] [address] * Phosphorus level (05/18/2017 12:56 PM) Component Value Ref Range Phosphorus 2.4 2.4 - 4.5 mg/dL Specimen Performing Laboratory Plasma specimen [facility] [place] [address] * Magnesium level (05/18/2017 12:56 PM) Only the most recent of 2 results within the time period is included. Component Value Ref Range Magnesium 2.1 1.6 - 2.6 mg/dL Specimen Performing Laboratory Plasma specimen [facility] DEPARTMENT OF PATHOLOGY AND GENOMIC MEDICINE [address] [place] [address] * Partial thromboplastin time, activated (05/15/2017 12:25 PM) Component Value Ref Range PTT 34.5 23.0 - 36.0 sec Comment: PTT therapeutic range for unfractionated heparin is 61.0-112.0 seconds which corresponds to Anti-Xa 0.3-0.7 U/ml. Specimen Performing Laboratory Blood [facility] DEPARTMENT OF PATHOLOGY AND GENOMIC MEDICINE [address] [place] [address] * Type and screen (05/15/2017 12:25 PM) Component Value Ref Range ABO grouping A Rh type POS Antibody screen NEG Specimen Performing Laboratory Blood [facility] DEPARTMENT OF PATHOLOGY AND GENOMIC MEDICINE [address] [place] [address] * Lipase level (05/15/2017 12:25 PM) Component Value Ref Range Lipase 35 13 - 60 U/L Specimen Performing Laboratory Plasma specimen [facility] DEPARTMENT OF PATHOLOGY AND GENOMIC MEDICINE [address] [place] [address] after 02/26/2017 Insurance Payer Benefit Subscriber ID Type Phone Address Plan / Group [facility] MEDICARE AARP xxxxxxxxx [facility] MEDICARE COMPLETE MCR Home: [address] [place], [place] [phone] [place] [address] [address] [employer] [employer] 1970 Home: [address] [place], [place] [phone] [place] [address]
[2018-02-27 21:10] VITALS: BP 143/85
[2018-02-27 23:06] VITALS: BP 143/85
[2018-02-27] MEDS: MORPHINE SULFATE 2 MG/ML SYR IV PRN (23:50)
[2018-02-28] VITALS (8 sets, daily range): BP systolic 103–156; BP diastolic 61–96
[2018-02-28 06:58] LABS: BASOPHILS # (AUTO) 0.1 (0.0-0.1); BASOPHILS % 1.1 % (0.0-1.0); EOSINOPHILS # (AUTO) 0.2 (0.0-0.4); EOSINOPHILS % 3.3 % (0.0-6.0); HEMATOCRIT 33.7 % (34.2-44.1); HEMOGLOBIN 11.8 g/dL (12.0-16.0); LYMPHOCYTES # (AUTO) 2.6 (1.0-3.2); LYMPHOCYTES % 38.9 % (18.0-39.1); MEAN CORPUSCULAR HEMOGLOBIN 34.2 pg (28-32); MEAN CORPUSCULAR VOLUME 97.7 fL (81-99); MONOCYTES # (AUTO) 0.7 (0.2-0.8); MONOCYTES % 10.3 % (4.4-11.3); NEUTROPHILS % 46.2 % (38.7-80.0); PLATELET COUNT 100 x10e3/uL (140-360); RED BLOOD COUNT 3.45 x10e6/uL (3.6-5.1); RED CELL DISTRIBUTION WIDTH 17.9 % (11.7-14.4)
[2018-02-28] MEDS: MORPHINE SULFATE 2 MG/ML SYR IV PRN ×4 (07:35→22:08)
[2018-02-28 07:37] LABS: ALANINE AMINOTRANSFERASE 66 IU/L (0-55); ALBUMIN 2.2 g/dL (3.5-5.0); ALBUMIN/GLOBULIN RATIO 0.5 (0.8-2.0); ALKALINE PHOSPHATASE 150 IU/L (40-150); ANION GAP 7.6 mmol/L (8-16); BLOOD UREA NITROGEN < 5 mg/dL (7-26); CALCIUM 7.9 mg/dL (8.4-10.2); CARBON DIOXIDE 25 mmol/L (22-29); CHLORIDE 114 mmol/L (98-107); CREATININE, SERUM 0.54 mg/dL (0.57-1.11); EST GLOMERULAR FILTRATION RATE > 60 ML/MIN (60-); GLUCOSE 97 mg/dL (74-118); POTASSIUM 3.6 mmol/L (3.5-5.1); SODIUM 143 mmol/L (136-145)
[2018-02-28 07:52] LABS: BUN/CREATININE RATIO 9 (6-25)
[2018-02-28] MEDS: VENLAFAXINE HCL 75 MG CAPCR PO SCH (08:40)
[2018-02-28] MEDS ORDERED: NON-FORMULARY MEDICATION (Venlafaxine Hcl (Effexor Xr) 150 MG) PO SCH (09:00)
[2018-02-28] MEDS: SODIUM CHLORIDE 0.9% 1000ML 1,000 ML IV SCH (17:11)
--- NOTE | 2018-02-28 19:22 | History and Physical ---
The patient came in with intractable pain, nausea and vomiting. HISTORY OF PRESENT ILLNESS: This is Ms. Dania Norton with a history of known cirrhosis of the liver with hepatitis C was in her usual state of health until a day prior to admission. The patient started to have acute abdominal pain, midepigastric and caused her to have retching and pain. Got worse and associated with nausea and vomiting. The patient came to the emergency room and was found to have dehydration, hypokalemia, abdominal pain, and admitted for the same. PAST MEDICAL HISTORY: History of anxiety, history of depression, history of cirrhosis, history of splenectomy in the past, history of coronary artery disease, and history of hypertension too. The hypertension and coronary artery disease were secondary to procedural event. The patient has been in the liver program for a long time, but has not been successful in treatment of hepatitis C because of her genotype, and inability to take Harvoni. PAST SURGICAL HISTORY: Splenectomy and laparoscopies. REVIEW OF SYSTEMS: Negative for chest pain. No constipation. No diarrhea. No hematemesis. Positive for some blurry vision. No chest pain. Positive for dyspnea on exertion on arrival. Right now, the patient is feeling better. No rectal bleeding and no hematemesis. PHYSICAL EXAMINATION GENERAL: The patient is alert and oriented times 3. VITAL SIGNS: Temperature is 97.2, blood pressure 132/68, respirations 16, pulse ox 94%. HEENT: Normocephalic and atraumatic. Positive for jaundice and icterus. LUNGS: Clear to auscultation bilaterally. ABDOMEN: Distended in the epigastric area. EXTREMITIES: No clubbing. No cyanosis. No edema. LABORATORY VALUES: White count is 6000, hemoglobin 12, hematocrit 34.4. Chemistry: Sodium is 138, potassium 3.7, BUN 5, and creatinine 0.6. Alkaline phosphatase is 159, ALT 71, AST 136, total bili of 2.9. IMAGING STUDIES: Abdominal x-ray shows no obstructive gas pattern. ASSESSMENT 1. Intractable nausea and vomiting. 2. Hypokalemia. 3. Dehydration. Will be replacing sodium. Will replace her potassium right now. Will continue to monitor the patient's lytes. Further recommendations per clinical course. Will continue to monitor the patient. Nausea medicine of Phenergan will be given. With her elevated LFTs, will keep watching her liver enzymes and continue monitoring. Further recommendations per clinical course. Will continue monitoring the patient. Job#: [id number] RI
[2018-03-01] VITALS: BP 153/82
[2018-03-01] MEDS: MORPHINE SULFATE 2 MG/ML SYR IV PRN ×3 (02:57→11:20)
[2018-03-01 04:00] VITALS: BP 155/85
[2018-03-01] MEDS: SODIUM CHLORIDE 0.9% 1000ML 1,000 ML IV SCH (05:31)
[2018-03-01 06:57] LABS: BASOPHILS # (AUTO) 0.1 (0.0-0.1); BASOPHILS % 0.9 % (0.0-1.0); EOSINOPHILS # (AUTO) 0.3 (0.0-0.4); HEMATOCRIT 32.7 % (34.2-44.1); HEMOGLOBIN 11.4 g/dL (12.0-16.0); LYMPHOCYTES # (AUTO) 2.9 (1.0-3.2); LYMPHOCYTES % 42.9 % (18.0-39.1); MEAN CORPUSCULAR HGB CONC 34.9 g/dL (31-35); MEAN CORPUSCULAR VOLUME 100.3 fL (81-99); MONOCYTES # (AUTO) 0.7 (0.2-0.8); MONOCYTES % 10.2 % (4.4-11.3); NEUTROPHILS # (AUTO) 2.8 (2.1-6.9); NEUTROPHILS % 41.9 % (38.7-80.0); PLATELET COUNT 100 x10e3/uL (140-360); RED BLOOD COUNT 3.26 x10e6/uL (3.6-5.1); RED CELL DISTRIBUTION WIDTH 17.5 % (11.7-14.4)
[2018-03-01 07:15] VITALS: BP 146/67
[2018-03-01 07:33] LABS: ALANINE AMINOTRANSFERASE 65 IU/L (0-55); ALBUMIN 2.2 g/dL (3.5-5.0); ALBUMIN/GLOBULIN RATIO 0.5 (0.8-2.0); ALKALINE PHOSPHATASE 153 IU/L (40-150); ANION GAP 6.5 mmol/L (8-16); BLOOD UREA NITROGEN < 5 mg/dL (7-26); CALCIUM 7.8 mg/dL (8.4-10.2); CARBON DIOXIDE 24 mmol/L (22-29); CHLORIDE 111 mmol/L (98-107); CREATININE, SERUM 0.51 mg/dL (0.57-1.11); EST GLOMERULAR FILTRATION RATE > 60 ML/MIN (60-); GLUCOSE 84 mg/dL (74-118); MAGNESIUM 1.4 MG/DL (1.3-2.1); POTASSIUM 3.5 mmol/L (3.5-5.1); SODIUM 138 mmol/L (136-145)
[2018-03-01 07:35] LABS: BUN/CREATININE RATIO 10 (6-25)
[2018-03-01 07:47] VITALS: BP 146/67
[2018-03-01] MEDS: VENLAFAXINE HCL 75 MG CAPCR PO SCH (09:10)
[2018-03-01 11:40] VITALS: BP 140/63
== END 2018-03-01 13:57 | disposition home or self-care (01) ==
LOC: ER 16:14 → ERHOLD 20:26 → MED/SURG3 21:01
PROVIDERS: ADMIT Family Medicine; ATTEND Family Medicine
DX: E87.6 Hypokalemia (principal); K74.60 Unspecified cirrhosis of liver; B19.20 Unspecified viral hepatitis C without hepatic coma; E86.0 Dehydration; R11.2 Nausea with vomiting, unspecified
CPT/HCPCS: 36415 ×3; 80053 ×3; 81001; 82140; 83605; 83690; 83735; 85025 ×3; 87086; 99284; G0378 ×3; J2270 ×3; J2405; J3480; J7030 ×3

== ENCOUNTER 2018-04-24 17:23 | Inpatient (IN) | payer MEDICARE ==
[~2018-04-24] VITALS: Ht 167.6 cm; Wt 55.5 kg
[2018-04-24 18:26] LABS: BASOPHILS # (AUTO) 0.1 (0.0-0.1); BASOPHILS % 0.8 % (0.0-1.0); EOSINOPHILS # (AUTO) 0.4 (0.0-0.4); EOSINOPHILS % 6.4 % (0.0-6.0); HEMATOCRIT 37.1 % (34.2-44.1); HEMOGLOBIN 13.5 g/dL (12.0-16.0); LYMPHOCYTES # (AUTO) 3.4 (1.0-3.2); LYMPHOCYTES % 52.8 % (18.0-39.1); MEAN CORPUSCULAR HEMOGLOBIN 34.1 pg (28-32); MEAN CORPUSCULAR HGB CONC 36.4 g/dL (31-35); MEAN CORPUSCULAR VOLUME 93.7 fL (81-99); MONOCYTES # (AUTO) 0.6 (0.2-0.8); MONOCYTES % 9.6 % (4.4-11.3); NEUTROPHILS # (AUTO) 1.9 (2.1-6.9); NEUTROPHILS % 30.2 % (38.7-80.0); PLATELET COUNT 124 x10e3/uL (140-360); RED BLOOD COUNT 3.96 x10e6/uL (3.6-5.1); RED CELL DISTRIBUTION WIDTH 17.9 % (11.7-14.4)
[2018-04-24] MEDS ORDERED: ASPIRIN 81 MG CHEW TAB PO ONE (18:30)
[2018-04-24 18:40] LABS: ALANINE AMINOTRANSFERASE 104 IU/L (0-55); ALBUMIN 2.6 g/dL (3.5-5.0); ALBUMIN/GLOBULIN RATIO 0.5 (0.8-2.0); ALKALINE PHOSPHATASE 226 IU/L (40-150); ANION GAP 8.5 mmol/L (8-16); BLOOD UREA NITROGEN 8 mg/dL (7-26); BUN/CREATININE RATIO 15 (6-25); CALCIUM 8.5 mg/dL (8.4-10.2); CARBON DIOXIDE 25 mmol/L (22-29); CHLORIDE 107 mmol/L (98-107); CREATININE, SERUM 0.52 mg/dL (0.57-1.11); EST GLOMERULAR FILTRATION RATE > 60 ML/MIN (60-); GLUCOSE 85 mg/dL (74-118); POTASSIUM 3.5 mmol/L (3.5-5.1); SODIUM 137 mmol/L (136-145)
[2018-04-24 18:47] LABS: CREATINE KINASE MB 1.3 ng/mL (0-5.0)
--- NOTE | 2018-04-24 19:22 | Diagnostic Imaging Report ---
EXAMINATION: CHEST SINGLE (PORTABLE) INDICATION: \S\SOB, palpitations COMPARISON: None FINDINGS: AP view TUBES and LINES: None. LUNGS: Lungs are well inflated. Mild patchy airspace opacities in the lung bases, left greater than right. PLEURA: No pleural effusion or pneumothorax. HEART AND MEDIASTINUM: The cardiomediastinal silhouette is unremarkable. BONES AND SOFT TISSUES: No acute osseous lesion. Healed right posterior sixth and seventh and eighth rib fracture deformities. Additional left healed rib fracture deformities. Soft tissues are unremarkable. UPPER ABDOMEN: No free air under the diaphragm. IMPRESSION: Findings suggestive of multifocal pneumonia, left greater than right. Superimposed fluid overload cannot be excluded. Signed by: Dr. Chidi Beth M.D. on 04/24/2018 7:18 PM
[2018-04-24 20:01] LABS: CLARITY,URINE CLEAR (CLEAR); COLOR,URINE YELLOW (YELLOW)
[2018-04-24 20:02] LABS: BILIRUBIN,URINE 1+ (NEGATIVE); KETONES,URINE NEGATIVE (NEGATIVE); LEUKOCYTE ESTERASE ,URINE TRACE (NEGATIVE); NITRITE,URINE NEGATIVE (NEGATIVE); PROTEIN,URINE DIPSTICK NEGATIVE (NEGATIVE); URINE UROBILINOGEN 1 mg/dL (0.2 - 1)
[2018-04-24 20:19] LABS: EPITHELIAL CELLS,URINE RARE /LPF; MUCUS,URINE FEW (RARE); RBC,URINE 0-5 /HPF (0-5); TRANSITIONAL EPI CELLS,URINE FEW; WBC,URINE (MAN) 0-5 /HPF (0-5)
[2018-04-24] MEDS ORDERED: PANTOPRAZOLE 40 MG 10ML VIAL IV STA (21:56)
[2018-04-24] MEDS ORDERED: ONDANSETRON HCL INJ 2 MG/ML VIAL IV STA (21:56)
[2018-04-24] MEDS ORDERED: MORPHINE SULFATE 2 MG/ML SYR IV STA (21:56)
[2018-04-24] MEDS ORDERED: SODIUM CHLORIDE 0.9% 500ML 500 ML IV ONE (22:00)
[2018-04-24] MEDS ORDERED: SODIUM CHLORIDE 0.9% 50ML 50 ML ONE (23:23)
[2018-04-24] MEDS ORDERED: IOPAMIDOL 370 MG/ML 200 ML INFUS..BTL INJ ONE (23:24)
[2018-04-25] VITALS (9 sets, daily range): BP systolic 131–145; BP diastolic 61–84
--- NOTE | 2018-04-25 00:45 | Diagnostic Imaging Report ---
EXAM: CT ABDOMEN/PELVIS W DATE: 04/24/2018 9:56 PM INDICATION: \S\abd pain, distension, Hep C/cirrhosis \S\[id number] \S\232 COMPARISON: 01/29/2018 TECHNIQUE: The abdomen and pelvis were scanned using a multidetector helical scanner. Coronal and sagittal reformations were obtained. Routine protocol performed. IV Contrast: 100 ml Isovue 300/370 FINDINGS: LOWER THORAX: Mild cardiomegaly. No consolidation. LIVER: Stable nodular liver in morphologic changes of cirrhosis. GALLBLADDER: Surgically absent. Stable extrahepatic biliary duct dilation. SPLEEN: The spleen is absent. Several hyperdense nodules in the left upper quadrant are most compatible with splenosis. PANCREAS: Unremarkable ADRENALS: No nodules KIDNEYS: Symmetric perfusion. No enhancing masses. No hydronephrosis. GI TRACT: No wall thickening or evidence of obstruction. 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 GE junction varices. PERITONEUM/RETROPERITONEUM: Small volume ascites. Diffuse mesenteric and omental edema. Several nodules along the left anterior peritoneum are unchanged. LYMPH NODES: No lymphadenopathy REPRODUCTIVE ORGANS/BLADDER: Hysterectomy. Bladder is decompressed SOFT TISSUES: Tiny fat and fluid containing ventral hernia. BONES: No suspicious bone lesions. IMPRESSION: 1. No acute abnormality in the abdomen or pelvis. 2. Cirrhosis with evidence of portal hypertension including GE junction varices and small volume ascites. 3. Spleen is absent. 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 Signed by: Dr Mary Reynolds MD on 04/25/2018 12:42 AM
[2018-04-25] MEDS: SODIUM CHLORIDE 0.9% 1000ML 1,000 ML IV SCH ×2 (01:58→23:41)
[2018-04-25 04:15] LABS: CREATINE KINASE MB 1.7 ng/mL (0-5.0)
[2018-04-25] MEDS: MORPHINE SULFATE 2 MG/ML SYR IV PRN ×4 (04:40→22:17)
[2018-04-25] MEDS: ONDANSETRON HCL INJ 2 MG/ML VIAL IV PRN ×4 (04:40→22:17)
[2018-04-25] MEDS ORDERED: SPIRONOLACTONE 25 MG TAB PO ONE (07:15)
[2018-04-25 08:07] LABS: INR 1.48; PROTHROMBIN TIME 16.8 seconds (11.9-14.5)
[2018-04-25 08:08] LABS: PARTIAL THROMBOPLASTIN TIME 37.1 seconds (23.8-35.5)
[2018-04-25 08:09] LABS: ALANINE AMINOTRANSFERASE 101 IU/L (0-55); ALBUMIN 2.5 g/dL (3.5-5.0); ALBUMIN/GLOBULIN RATIO 0.6 (0.8-2.0); ALKALINE PHOSPHATASE 171 IU/L (40-150); ANION GAP 7.3 mmol/L (8-16); BLOOD UREA NITROGEN 6 mg/dL (7-26); BUN/CREATININE RATIO 11 (6-25); CARBON DIOXIDE 25 mmol/L (22-29); CHLORIDE 111 mmol/L (98-107); CREATININE, SERUM 0.53 mg/dL (0.57-1.11); EST GLOMERULAR FILTRATION RATE > 60 ML/MIN (60-); GLUCOSE 87 mg/dL (74-118); LIPASE 32 U/L (8-78); POTASSIUM 3.3 mmol/L (3.5-5.1); SODIUM 140 mmol/L (136-145)
[2018-04-25] MEDS ORDERED: PANTOPRAZOLE 40 MG 10ML VIAL IV SCH (09:00)
[2018-04-25] MEDS: FUROSEMIDE INJ 10 MG/ML 4 ML VIAL IV SCH (09:22)
[2018-04-25] MEDS: AZITHROMYCIN 500MG/NS 250 ML 250 ML IV SCH ×2 (09:22)
[2018-04-25] MEDS: PANTOPRAZOLE SOD 40 MG TABEC PO SCH (09:22)
[2018-04-25] MEDS ORDERED: POTASSIUM CHLORIDE 10 MEQ TABCR PO ONE (11:00)
--- NOTE | 2018-04-25 11:47 | History and Physical ---
A 47-year-old female comes in with shortness of breath. HISTORY OF PRESENT ILLNESS: This is Ms. Dania Norton, a 47-year-old female with a history of hepatitis C and chronic cirrhosis of the liver, was in her usual state of health until 2 days prior to admission. The patient started to have some abdominal pain categorized as increasing in a dull pain radiating to the back. The patient tried to take some medications at home, but did not get any relief and came to the emergency room. Was found to have ascites and also possible fluid overload and questionable pneumonia. PAST MEDICAL HISTORY: Includes history of alcohol use, history of tobacco use, history of hepatitis C with cirrhosis of the liver. The patient also has a history of coronary artery disease from an angiogram. FAMILY HISTORY: Includes history of diabetes, history of hypertension, and also history of psychiatric problems in the family. SURGICAL HISTORY: History of hysterectomy 33 years old from trauma, history of bowel obstruction, and history of H. pylori too. The patient also had an angiogram in 2010, which had a ruptured coronary. SOCIAL HISTORY: As mentioned above. History of alcohol and smoking. REVIEW OF SYSTEMS: Negative for chest pain. Some shortness of breath. No nausea, vomiting or diarrhea. No constipation. No hematochezia. No hematemesis either. No hemoptysis either. No diplopia. No blurry vision. No headaches. PHYSICAL EXAMINATION GENERAL: The patient is alert and oriented times 3. VITAL SIGNS: Temperature is 97.6, pulse 57, respirations 18, blood pressure 131/61 with a pulse oximetry of 94%. HEENT: Normocephalic and atraumatic. The patient has jaundice and icterus. CV: S1 and S2 normal. Regular rate and rhythm. LUNGS: Positive for crackles at the lung bases. ABDOMEN: Nondistended. Positive for some ascites. EXTREMITIES: No clubbing. Positive for edema. LABORATORY VALUES: White count was 6.3, hemoglobin 13.5, hematocrit 37.1, and platelet count is 124,000. Neutrophil count is 1.9. Chemistry showed sodium of 137, potassium 3.7, creatinine 0.52. AST, ALT and alkaline phosphatase are markedly elevated. Troponins were negative so far. BNP was 87.6. IMAGING STUDIES: Abdominal CT and pelvis shows no abdominal or pelvic pathology. Cirrhosis with portal hypertension. Spleen is absent. Positive for some mesenteric and omental edema, and several nodules along the left anterior peritoneum, which have been unchanged. Hysterectomy and bladder is decompressed. Chest x-ray is suggestive of multifocal pneumonia, patchy infiltrates bilaterally. ASSESSMENT: Questionable pneumonia. Will go ahead and continue with azithromycin and Rocephin. Will also challenge the patient with some Lasix for fluid overload. Will continue monitoring the patient. Restart home medications. Probably put her on diuretics for elevated liver function tests and cirrhosis of the liver. Consult with Dr. Gomez will be done for abdominal pain, and also for Helicobacter pylori. Will continue monitoring the patient. Further recommendations per clinical course. FINAL DIAGNOSES 1. Ascites. 2. Abdominal pain. 3. Pneumonia. 4. Fluid overload. Will continue monitoring the patient along with Dr. Gomez. Job#: [id number] [place]ER[place]
[2018-04-25 11:54] LABS: CREATINE KINASE MB 2.3 ng/mL (0-5.0)
--- NOTE | 2018-04-25 12:19 | Diagnostic Imaging Report ---
PROCEDURE:LIMITED ABDOMINAL ULTRASOUND COMPARISON:None. INDICATIONS:Ascites FINDINGS: Ascites: There is a minimal amount of free fluid in the pelvis. This is adjacent to active peristaltic loops of bowel. Quantity is insufficient to safely aspirate. CONCLUSION: Minimal amount of free fluid in the pelvis. Vasquez Chaudhry D.O. Dictated by: Vasquez Chaudhry D.O. on 04/25/2018 at 12:22 Electronically approved by: Vasquez Chaudhry D.O. on 04/25/2018 at 12:22
[2018-04-25] MEDS: CEFTRIAXONE SOD 1 GM VIAL IV SCH ×3 (18:03→23:37)
[2018-04-25 20:02] LABS: CREATINE KINASE MB 2.2 ng/mL (0-5.0)
[2018-04-26] VITALS (7 sets, daily range): BP systolic 110–154; BP diastolic 56–86
[2018-04-26] MEDS ORDERED: DICYCLOMINE HCL 20 MG TAB PO STA (01:01)
[2018-04-26] MEDS: ONDANSETRON HCL INJ 2 MG/ML VIAL IV PRN ×4 (04:20→20:45)
[2018-04-26] MEDS: MORPHINE SULFATE 2 MG/ML SYR IV PRN ×4 (04:20→20:45)
[2018-04-26 06:03] LABS: BASOPHILS # (AUTO) 0.1 (0.0-0.1); BASOPHILS % 1.3 % (0.0-1.0); EOSINOPHILS # (AUTO) 0.3 (0.0-0.4); EOSINOPHILS % 4.8 % (0.0-6.0); HEMATOCRIT 33.1 % (34.2-44.1); HEMOGLOBIN 11.8 g/dL (12.0-16.0); LYMPHOCYTES # (AUTO) 2.9 (1.0-3.2); LYMPHOCYTES % 51.5 % (18.0-39.1); MEAN CORPUSCULAR HEMOGLOBIN 34.2 pg (28-32); MEAN CORPUSCULAR HGB CONC 35.6 g/dL (31-35); MEAN CORPUSCULAR VOLUME 95.9 fL (81-99); MONOCYTES # (AUTO) 0.6 (0.2-0.8); MONOCYTES % 10.9 % (4.4-11.3); NEUTROPHILS # (AUTO) 1.8 (2.1-6.9); NEUTROPHILS % 31.3 % (38.7-80.0); PLATELET COUNT 106 x10e3/uL (140-360); RED BLOOD COUNT 3.45 x10e6/uL (3.6-5.1)
[2018-04-26 06:39] LABS: ALANINE AMINOTRANSFERASE 100 IU/L (0-55); ALBUMIN 2.4 g/dL (3.5-5.0); ALBUMIN/GLOBULIN RATIO 0.5 (0.8-2.0); ALKALINE PHOSPHATASE 142 IU/L (40-150); ANION GAP 8.7 mmol/L (8-16); BLOOD UREA NITROGEN 5 mg/dL (7-26); BUN/CREATININE RATIO 9 (6-25); CALCIUM 7.9 mg/dL (8.4-10.2); CARBON DIOXIDE 27 mmol/L (22-29); CHLORIDE 106 mmol/L (98-107); CREATININE, SERUM 0.56 mg/dL (0.57-1.11); EST GLOMERULAR FILTRATION RATE > 60 ML/MIN (60-); GLUCOSE 109 mg/dL (74-118); POTASSIUM 3.7 mmol/L (3.5-5.1); SODIUM 138 mmol/L (136-145)
[2018-04-26 07:09] LABS: MAGNESIUM 1.5 MG/DL (1.3-2.1)
[2018-04-26 07:17] LABS: THYROID STIMULATING HORMONE 1.144 uIU/mL (0.350-4.940)
--- NOTE | 2018-04-26 07:18 | History and Physical ---
No Dictation 00:02 seconds. Job#: [id number]
[2018-04-26 07:47] LABS: EOSINOPHILS % (MANUAL) 1 % (0-7); LYMPHOCYTES % (MANUAL) 47 % (19-48); MONOCYTES % (MANUAL) 12 % (3.4-9.0); NEUTROPHILS % (MANUAL) 38 % (40-74)
[2018-04-26 07:49] LABS: RBC MORPHOLOGY COMMENT ABNORMAL
[2018-04-26 07:50] LABS: ANISOCYTOSIS SLIGHT; PLATELET ESTIMATE SLIGHTLY DECREASED; PLATELET MORPHOLOGY COMMENT NORMAL; POIKILOCYTOSIS SLIGHT; TARGET CELLS FEW
[2018-04-26] MEDS: PANTOPRAZOLE SOD 40 MG TABEC PO SCH (08:45)
[2018-04-26] MEDS: FUROSEMIDE INJ 10 MG/ML 4 ML VIAL IV SCH (08:45)
[2018-04-26] MEDS: DICYCLOMINE HCL 10 MG CAP PO SCH ×3 (08:46→20:42)
[2018-04-26] MEDS: AZITHROMYCIN 500MG/NS 250 ML 250 ML IV SCH (08:46)
[2018-04-26] MEDS: VENLAFAXINE HCL 75 MG CAPCR PO SCH (08:46)
[2018-04-26] MEDS ORDERED: NON-FORMULARY MEDICATION (Venlafaxine Hcl (Effexor Xr) 150 MG) PO SCH (09:00)
[2018-04-26] MEDS: CEFTRIAXONE SOD 1 GM VIAL IV SCH ×2 (11:32→23:57)
[2018-04-26] MEDS: SODIUM CHLORIDE 0.9% 1000ML 1,000 ML IV SCH (17:20)
[2018-04-27] VITALS: BP 141/70
[2018-04-27] MEDS: MORPHINE SULFATE 2 MG/ML SYR IV PRN ×6 (00:47→22:25)
[2018-04-27] MEDS: ONDANSETRON HCL INJ 2 MG/ML VIAL IV PRN ×6 (00:47→22:25)
[2018-04-27 01:10] VITALS: BP 133/91
[2018-04-27 04:00] VITALS: BP 155/80
[2018-04-27 06:19] LABS: ALANINE AMINOTRANSFERASE 105 IU/L (0-55); ALBUMIN 2.6 g/dL (3.5-5.0); ALBUMIN/GLOBULIN RATIO 0.6 (0.8-2.0); ALKALINE PHOSPHATASE 169 IU/L (40-150); ANION GAP 8.7 mmol/L (8-16); BLOOD UREA NITROGEN 6 mg/dL (7-26); BUN/CREATININE RATIO 9 (6-25); CALCIUM 8.3 mg/dL (8.4-10.2); CARBON DIOXIDE 30 mmol/L (22-29); CHLORIDE 104 mmol/L (98-107); CREATININE, SERUM 0.64 mg/dL (0.57-1.11); EST GLOMERULAR FILTRATION RATE > 60 ML/MIN (60-); GLUCOSE 82 mg/dL (74-118); POTASSIUM 3.7 mmol/L (3.5-5.1); SODIUM 139 mmol/L (136-145)
[2018-04-27] MEDS: SODIUM CHLORIDE 0.9% 1000ML 1,000 ML IV SCH ×2 (07:13→21:22)
[2018-04-27 08:26] VITALS: BP 148/89
[2018-04-27] MEDS: AZITHROMYCIN 500MG/NS 250 ML 250 ML IV SCH (08:45)
[2018-04-27] MEDS: VENLAFAXINE HCL 75 MG CAPCR PO SCH (08:45)
[2018-04-27] MEDS: DICYCLOMINE HCL 10 MG CAP PO SCH ×3 (08:45→21:00)
[2018-04-27] MEDS: PANTOPRAZOLE SOD 40 MG TABEC PO SCH (08:45)
[2018-04-27] MEDS: FUROSEMIDE INJ 10 MG/ML 4 ML VIAL IV SCH (08:45)
[2018-04-27] MEDS: CEFTRIAXONE SOD 1 GM VIAL IV SCH ×2 (11:30→22:18)
[2018-04-27 12:08] VITALS: BP 129/75
[2018-04-27 20:00] VITALS: BP 125/68
[2018-04-28] VITALS: BP 139/73
[2018-04-28] MEDS ORDERED: POLYETHYLENE GLYCOL 3350 17 GM PACK PO ONE ×2 (01:00→02:00)
[2018-04-28] MEDS: ONDANSETRON HCL INJ 2 MG/ML VIAL IV PRN ×3 (03:00→20:29)
[2018-04-28 04:00] VITALS: BP 157/84
[2018-04-28] MEDS: MORPHINE SULFATE 2 MG/ML SYR IV PRN ×3 (04:35→20:29)
[2018-04-28 06:47] LABS: ANION GAP 8.5 mmol/L (8-16); BLOOD UREA NITROGEN 5 mg/dL (7-26); BUN/CREATININE RATIO 8 (6-25); CALCIUM 8.3 mg/dL (8.4-10.2); CARBON DIOXIDE 28 mmol/L (22-29); CHLORIDE 105 mmol/L (98-107); CREATININE, SERUM 0.66 mg/dL (0.57-1.11); EST GLOMERULAR FILTRATION RATE > 60 ML/MIN (60-); GLUCOSE 104 mg/dL (74-118); POTASSIUM 3.5 mmol/L (3.5-5.1); SODIUM 138 mmol/L (136-145)
[2018-04-28] MEDS ORDERED: LACTULOSE SYRUP 20 GM/30 ML UDC PO ONE (07:45)
[2018-04-28 08:11] VITALS: BP 146/90
[2018-04-28] MEDS: PANTOPRAZOLE SOD 40 MG TABEC PO SCH (08:30)
[2018-04-28] MEDS: VENLAFAXINE HCL 75 MG CAPCR PO SCH (09:00)
[2018-04-28] MEDS: DICYCLOMINE HCL 10 MG CAP PO SCH ×3 (09:00→20:07)
[2018-04-28] MEDS: AZITHROMYCIN 500MG/NS 250 ML 250 ML IV SCH (09:00)
[2018-04-28] MEDS: FUROSEMIDE INJ 10 MG/ML 4 ML VIAL IV SCH (09:00)
[2018-04-28 12:00] VITALS: BP 136/75
[2018-04-28] MEDS: CEFTRIAXONE SOD 1 GM VIAL IV SCH (12:30)
[2018-04-28 15:51] VITALS: BP 123/64
[2018-04-28] MEDS ORDERED: LACTULOSE SYRUP 20 GM/30 ML UDC PO PRN (17:45)
[2018-04-28 20:17] VITALS: BP 135/74
[2018-04-29] VITALS (9 sets, daily range): BP systolic 135–154; BP diastolic 63–87
[2018-04-29] MEDS: CEFTRIAXONE SOD 1 GM VIAL IV SCH ×3 (00:12→23:44)
[2018-04-29] MEDS ORDERED: BISACODYL 10 MG SUPP PR ONE (01:00)
[2018-04-29] MEDS: SODIUM CHLORIDE 0.9% 1000ML 1,000 ML IV SCH (02:42)
[2018-04-29] MEDS: MORPHINE SULFATE 2 MG/ML SYR IV PRN (04:18)
[2018-04-29] MEDS: ONDANSETRON HCL INJ 2 MG/ML VIAL IV PRN (04:19)
[2018-04-29] MEDS: AZITHROMYCIN 500MG/NS 250 ML 250 ML IV SCH (08:00)
[2018-04-29] MEDS: DICYCLOMINE HCL 10 MG CAP PO SCH ×3 (08:00→20:52)
[2018-04-29] MEDS: VENLAFAXINE HCL 75 MG CAPCR PO SCH (08:00)
[2018-04-29] MEDS: FUROSEMIDE INJ 10 MG/ML 4 ML VIAL IV SCH (08:00)
[2018-04-29] MEDS: PANTOPRAZOLE SOD 40 MG TABEC PO SCH (08:00)
[2018-04-29] MEDS ORDERED: MORPHINE SULFATE 2 MG/ML SYR IV PRN ×2 (09:00→16:00)
[2018-04-29] MEDS: TRAMADOL HCL 50 MG TAB PO PRN ×2 (11:00→20:52)
[2018-04-30 01:31] VITALS: BP 135/61
[2018-04-30 05:22] VITALS: BP 153/70
== END 2018-04-30 06:30 | disposition home or self-care (01) | DRG 432 ==
LOC: ER 17:23 → ERHOLD 04-25 01:20 → IMCU 04-25 02:26 → OBSVTOIN 04-26 16:22 → MED/SURG3 04-27 01:03
PROVIDERS: ADMIT Family Medicine; ATTEND Family Medicine
DX: K70.31 Alcoholic cirrhosis of liver with ascites (principal); J18.9 Pneumonia, unspecified organism; K76.6 Portal hypertension; E87.70 Fluid overload, unspecified; B18.2 Chronic viral hepatitis C; F10.11 Alcohol abuse, in remission; Z87.891 Personal history of nicotine dependence; I25.10 Atherosclerotic heart disease of native coronary artery without angina pectoris; F32.9 Major depressive disorder, single episode, unspecified; K59.00 Constipation, unspecified
CPT/HCPCS: 36415; 71045; 74177; 74470; 76705; 80048; 80053; 81001; 82550; 82553; 82607; 83605; 83690; 83735; 83880; 84443; 84484; 85025; 85610; 85730; 87040; 93005; 96360; 99284; G0378; J0456; J0696; J1940; J2270; J2405; J7030; J7040; Q9967

== ENCOUNTER 2019-01-22 01:47 | Observation (INO) | payer MEDICARE ==
[~2019-01-22] VITALS: Ht 167.6 cm; Wt 72.6 kg
--- OUTSIDE RECORDS SUMMARY | 2019-01-22 01:51 | XMS REPORT | Clinical Summary ---
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 recent of 3 results within the time period is included. WBC 5.18 4.50 - 11.00 k/uL [facility] DEPARTMENT OF PATHOLOGY AND GENOMIC MEDICINE RBC 3.42 (L) 4.20 - 5.50 m/uL [facility] DEPARTMENT OF PATHOLOGY AND GENOMIC MEDICINE HGB 11.4 (L) 12.0 - 16.0 g/dL [facility] DEPARTMENT OF PATHOLOGY AND GENOMIC MEDICINE HCT 32.6 (L) 37.0 - 47.0 % [facility] DEPARTMENT OF PATHOLOGY AND GENOMIC MEDICINE MCV 95.3 82.0 - 100.0 fL [facility] DEPARTMENT OF PATHOLOGY AND GENOMIC MEDICINE MCH 33.3 27.0 - 34.0 pg [facility] DEPARTMENT OF PATHOLOGY AND GENOMIC MEDICINE MCHC 35.0 31.0 - 37.0 g/dL [facility] DEPARTMENT OF PATHOLOGY AND GENOMIC MEDICINE RDW - SD 65.4 (H) 37.0 - 55.0 fL [facility] DEPARTMENT OF PATHOLOGY AND GENOMIC MEDICINE MPV 12.8 8.8 - 13.2 fL [facility] DEPARTMENT OF PATHOLOGY AND GENOMIC MEDICINE Platelet count 117 (L) 150 - 400 k/uL [facility] DEPARTMENT OF PATHOLOGY AND GENOMIC MEDICINE Nucleated RBC 0.00 /100 WBC [facility] DEPARTMENT OF PATHOLOGY AND GENOMIC MEDICINE Neutrophils 19.3 (L) 39.0 - 69.0 % [facility] DEPARTMENT OF PATHOLOGY AND GENOMIC MEDICINE Lymphocytes 54.4 (H) 25.0 - 45.0 % [facility] DEPARTMENT OF PATHOLOGY AND GENOMIC MEDICINE Monocytes 12.0 (H) 0.0 - 10.0 % [facility] DEPARTMENT OF PATHOLOGY AND GENOMIC MEDICINE Eosinophils 12.2 (H) 0.0 - 5.0 % [facility] DEPARTMENT OF PATHOLOGY AND GENOMIC MEDICINE Basophils 2.1 (H) 0.0 - 1.0 % [facility] DEPARTMENT OF PATHOLOGY AND GENOMIC MEDICINE Specimen Blood Performing Organization Address [facility] [place] Phone Number [address] [place] [address] PATHOLOGY [facility] * B natriuretic peptide (08/26/2018 10:40 AM CDT) BNP 206 (H) 0 - 100 pg/mL [facility] DEPARTMENT OF PATHOLOGY AND GENOMIC MEDICINE Specimen Blood Performing Organization Address [facility] [place] Phone Number [address] [place] [address] PATHOLOGY [facility] * Lipase level (08/26/2018 10:40 AM CDT) Only the most recent of 2 results within the time period is included. Lipase 72 (H) 13 - 60 U/L [facility] DEPARTMENT OF PATHOLOGY AND GENOMIC MEDICINE Specimen Plasma specimen Performing Organization Address [facility] [place] Phone Number [address] [place] [phone] PATHOLOGY AND GENOMIC MEDICINE * Hepatic function panel (08/26/2018 10:40 AM CDT) Albumin 2.8 (L) 3.5 - 5.0 g/dL [facility] DEPARTMENT OF PATHOLOGY AND GENOMIC MEDICINE Total bilirubin 3.1 (H) 0.0 - 1.2 mg/dL [facility] DEPARTMENT OF PATHOLOGY AND GENOMIC MEDICINE Bilirubin direct 1.7 (H) 0.0 - 0.3 mg/dL [facility] DEPARTMENT OF PATHOLOGY AND GENOMIC MEDICINE Alkaline phosphatase 270 (H) 35 - 104 U/L [facility] DEPARTMENT OF PATHOLOGY AND GENOMIC MEDICINE Protein 7.8 6.3 - 8.3 g/dL [facility] DEPARTMENT OF Comment: PATHOLOGY AND GENOMIC MEDICINE 4.6-7.0 g/dL 1 week 4.4-7.6 g/dL 7 months-1year 5.1-7.3 g/dL 1-2 years5.6-7 .5 g/dL >3 years6.0-8 .0 g/dL 18-150 6.3-8.3 g/dL ALT 64 (H) 5 - 50 U/L [facility] DEPARTMENT OF PATHOLOGY AND GENOMIC MEDICINE AST 137 (H) 10 - 35 U/L [facility] DEPARTMENT OF PATHOLOGY AND GENOMIC MEDICINE Specimen Plasma specimen Performing Organization Address [facility] [place] Phone Number [address] [place] [phone] PATHOLOGY AND GENOMIC MEDICINE * Basic metabolic panel (08/26/2018 10:40 AM CDT) Sodium 143 135 - 148 mEq/L [facility] DEPARTMENT OF PATHOLOGY AND GENOMIC MEDICINE Potassium 3.7 3.5 - 5.0 mEq/L [facility] DEPARTMENT OF PATHOLOGY AND GENOMIC MEDICINE Chloride 110 98 - 112 mEq/L [facility] DEPARTMENT OF PATHOLOGY AND GENOMIC MEDICINE CO2 25 24 - 31 mEq/L [facility] DEPARTMENT OF PATHOLOGY AND GENOMIC MEDICINE Anion gap 8@ANIO 7 - 15 mEq/L [facility] DEPARTMENT OF PATHOLOGY AND GENOMIC MEDICINE BUN 10 6 - 20 mg/dL [facility] DEPARTMENT OF PATHOLOGY AND GENOMIC MEDICINE Creatinine 0.50 0.50 - 0.90 mg/dL [facility] DEPARTMENT OF PATHOLOGY AND GENOMIC MEDICINE Glucose 124 (H) 65 - 99 mg/dL [facility] DEPARTMENT OF PATHOLOGY AND GENOMIC MEDICINE Calcium 8.8 8.3 - 10.2 mg/dL [facility] DEPARTMENT OF PATHOLOGY AND GENOMIC MEDICINE Specimen Plasma specimen Performing Organization Address City/[facility] [place] Phone Number [address] [place] [address] PATHOLOGY [facility] * Urinalysis screen and microscopy, with reflex to culture (05/19/2018 2:23 PM CDT) Specimen site Clean catch [facility] DEPARTMENT OF PATHOLOGY AND GENOMIC MEDICINE Color, UA Straw [facility] DEPARTMENT OF PATHOLOGY AND GENOMIC MEDICINE Appearance, UA Clear [facility] DEPARTMENT OF PATHOLOGY AND GENOMIC MEDICINE Specific gravity, UA 1.016 1.001 - 1.035 [facility] DEPARTMENT OF PATHOLOGY AND GENOMIC MEDICINE pH, UA 8.0 5.0 - 8.5 [facility] DEPARTMENT OF PATHOLOGY AND GENOMIC MEDICINE Protein, UA Negative Negative [facility] DEPARTMENT OF PATHOLOGY AND GENOMIC MEDICINE Glucose, UA Negative Negative [facility] DEPARTMENT OF PATHOLOGY AND GENOMIC MEDICINE Ketones, UA Negative Negative [facility] DEPARTMENT OF PATHOLOGY AND GENOMIC MEDICINE Bilirubin, UA Negative Negative [facility] DEPARTMENT OF PATHOLOGY AND GENOMIC MEDICINE Blood, UA Small (A) Negative [facility] DEPARTMENT OF PATHOLOGY AND GENOMIC MEDICINE Nitrite, UA Negative Negative [facility] DEPARTMENT OF PATHOLOGY AND GENOMIC MEDICINE Urobilinogen, UA Negative <2.0 [facility] DEPARTMENT OF PATHOLOGY AND GENOMIC MEDICINE Leukocyte esterase, UA Negative Negative [facility] DEPARTMENT OF PATHOLOGY AND GENOMIC MEDICINE Round epithelial cells, Few 0 - 1 /HPF [facility] DEPARTMENT OF UA PATHOLOGY AND GENOMIC MEDICINE WBC, UA 0-5 0 - 4 /HPF [facility] DEPARTMENT OF PATHOLOGY AND GENOMIC MEDICINE RBC, UA 0-5 0 - 5 /HPF [facility] DEPARTMENT OF PATHOLOGY AND GENOMIC MEDICINE Bacteria, UA Trace None seen [facility] DEPARTMENT OF PATHOLOGY AND GENOMIC MEDICINE Yeast, UA None seen [facility] DEPARTMENT OF PATHOLOGY AND GENOMIC MEDICINE Yeast with pseudohyphae, None seen [facility] PATHOLOGY AND GENOMIC MEDICINE Specimen Urine Performing Organization Address City/[facility] [place]/Zipcode Phone Number [place] [address] [place] [address] PATHOLOGY AND GENOMIC MEDICINE * CT Abdomen Pelvis W Contrast (05/19/2018 12:52 PM CDT) Narrative Performed At EXAMINATION:[facility] ABDOMEN [facility]ICAL HISTORY:Abd distension TECHNIQUE: Multiple axial images of the abdomen and pelvis were obtained following intravenous administration of iodinated contrast. Sagittal and coronal computerized reformatted images were also obtained.Automatic exposure control or iterative reconstruction techniques used to reduce dose. COMPARISON:05/18/2017 Impression: 1.No focal lesions are seen within the liver, pancreas, adrenals, kidneys. Splenectomy noted. Post surgical changes compatible with cholecystectomy. 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 2.No evidence for small bowel dilatation. No pneumatosis or free air. Moderate amount of ascites, and evidence for mesenteric edema noted. No significant bowel wall thickening. The SMV and portal veins appear patent. Summary: 1.Ascites and mesenteric edema has developed since prior study. [facility]-[id number] Procedure Note Interface, Radiology Results Incoming - 05/19/2018 1:03 PM CDT EXAMINATION: CT ABDOMEN PELVIS W CONTRAST CLINICAL HISTORY: Abd distension TECHNIQUE: Multiple axial images of the abdomen and pelvis were obtained following intravenous administration of iodinated contrast. Sagittal and coronal computerized reformatted images were also obtained.Automatic exposure control or iterative reconstruction techniques used to reduce dose. COMPARISON: 05/18/2017 Impression: 1. No focal lesions are seen within the liver, pancreas, adrenals, kidneys. Splenectomy noted. Post surgical changes compatible with cholecystectomy. 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 2. No evidence for small bowel dilatation. No pneumatosis or free air. Moderate amount of ascites, and evidence for mesenteric edema noted. No significant bowel wall thickening. The SMV and portal veins appear patent. Summary: 1. Ascites and mesenteric edema has developed since prior study. [facility]-[id number] Performing Organization Address City/State/Zipcode Phone Number [facility] [address] [place] [address] * Estimated GFR (05/19/2018 11:28 AM CDT) Only the most recent of 2 results within the time period is included. GFR Non Af Amer >90 mL/min/1.73 m2 [facility] DEPARTMENT OF PATHOLOGY AND GENOMIC MEDICINE GFR Af Amer >90 mL/min/1.73 m2 [facility] DEPARTMENT OF Comment: PATHOLOGY AND Chronic kidney disease: <60 GENOMIC MEDICINE mL/min/1.73m2 Kidney failure: <15 mL/min/1.73m2 The estimated GFR is calculated from the IDNJ-traceable Modification of Diet in Renal Disease Equation. The accuracy of the calculation is poor when the creatinine is normal. Calculated values >90 mL/min/1.73m2 are not reported. This equation has not been validated in children (<18 years), women, the elderly (>70 years), or ethnic groups other than Caucasians and Americans. Specimen Plasma specimen Performing Organization Address [facility] Phone Number [address] [place] [address] PATHOLOGY AND [facility] * Partial thromboplastin time, activated (05/19/2018 11:28 AM CDT) PTT 36.7 (H) 23.0 - 36.0 sec [facility] DEPARTMENT OF Comment: PATHOLOGY AND PTT therapeutic range for [facility] unfractionated heparin is 61.0-112.0 seconds which corresponds to Anti-Xa 0.3-0.7 U/ml. Specimen Blood Performing Organization Address [facility] Phone Number [address] [place] [address] PATHOLOGY AND [facility] * Prothrombin time with INR (05/19/2018 11:28 AM CDT) Prothrombin time 17.7 (H) 12.0 - 15.0 sec [facility] DEPARTMENT OF PATHOLOGY AND GENOMIC MEDICINE INR 1.4 [facility] DEPARTMENT OF Comment: PATHOLOGY AND The International Normalized [facility] Ratio (INR) is a therapeutic monitoring tool for patients who are stable on oral anticoagulant therapy. An INR of 2.0-3.0 is suggested for deep vein thrombosis/pulmonary embolism. Specimen Blood Performing Organization Address [facility] Phone Number [address] [place] [address] PATHOLOGY AND [facility] * Alcohol level, blood (05/19/2018 11:28 AM CDT) Only the most recent of 2 results within the time period is included. Alcohol None Detected mg/dL [facility] DEPARTMENT OF Comment: PATHOLOGY AND Normal GENOMIC MEDICINE None Detected Legal Intoxication in [place]80 mg/dL (0.08%) - Whole Blood Toxic Concentration 200 mg/dL (0.2%) Potentially Fatal3 50 - 500 mg/dL (0.35 - 0.5%) Alcohol percent None Detected % [facility] DEPARTMENT OF PATHOLOGY AND GENOMIC MEDICINE Specimen Plasma specimen Performing Organization Address City/State/Zipcode Phone Number [facility] [place] [address] [place] [address] PATHOLOGY AND GENOMIC MEDICINE * Comprehensive metabolic panel (05/19/2018 11:28 AM CDT) Only the most recent of 2 results within the time period is included. Sodium 142 135 - 148 mEq/L [facility] DEPARTMENT OF PATHOLOGY AND GENOMIC MEDICINE Potassium 3.9 3.5 - 5.0 mEq/L [facility] DEPARTMENT OF PATHOLOGY AND GENOMIC MEDICINE Chloride 109 98 - 112 mEq/L [facility] DEPARTMENT OF PATHOLOGY AND GENOMIC MEDICINE CO2 22 (L) 24 - 31 mEq/L [facility] DEPARTMENT OF PATHOLOGY AND GENOMIC MEDICINE Anion gap 11@ANIO 7 - 15 mEq/L [facility] DEPARTMENT OF PATHOLOGY AND GENOMIC MEDICINE BUN 11 6 - 20 mg/dL [facility] DEPARTMENT OF PATHOLOGY AND GENOMIC MEDICINE Creatinine 0.5 0.5 - 0.9 mg/dL [facility] DEPARTMENT OF PATHOLOGY AND GENOMIC MEDICINE Glucose 99 65 - 99 mg/dL [facility] DEPARTMENT OF PATHOLOGY AND GENOMIC MEDICINE Calcium 8.4 8.3 - 10.2 mg/dL [facility] DEPARTMENT OF PATHOLOGY AND GENOMIC MEDICINE Protein 6.5 6.3 - 8.3 g/dL [facility] DEPARTMENT OF Comment: PATHOLOGY AND [place] GENOMIC MEDICINE 4.6-7.0 g/dL 1 week 4.4-7.6 g/dL 7 months-1year 5.1-7.3 g/dL 1-2 years5.6-7 .5 g/dL >3 years6.0-8 .0 g/dL 18-150 6.3-8.3 g/dL Albumin 2.6 (L) 3.5 - 5.0 g/dL [facility] DEPARTMENT OF PATHOLOGY AND GENOMIC MEDICINE A/G ratio 0.7 0.7 - 3.8 [facility] DEPARTMENT OF PATHOLOGY AND GENOMIC MEDICINE Alkaline phosphatase 278 (H) 35 - 104 U/L [facility] DEPARTMENT OF PATHOLOGY AND GENOMIC MEDICINE AST 199 (H) 10 - 35 U/L [facility] DEPARTMENT OF PATHOLOGY AND GENOMIC MEDICINE ALT 86 (H) 5 - 50 U/L [facility] DEPARTMENT OF PATHOLOGY AND GENOMIC MEDICINE Total bilirubin 2.6 (H) 0.0 - 1.2 mg/dL [facility] DEPARTMENT OF PATHOLOGY AND GENOMIC MEDICINE Specimen Plasma specimen Performing Organization Address City/State/Zipcode Phone Number [facility] [place] [address] [place] [address] PATHOLOGY AND GENOMIC MEDICINE * CT Maxillofacial Wo Contrast (05/08/2018 7:32 PM CDT) Narrative Performed At EXAMINATION:CT MAXILLOFACIAL WO CONTRAST [facility] CLINICAL HISTORY:Masslump or swellingmaxface COMPARISON:Concurrent head CT on 05/08/2018 TECHNIQUE: Maxillofacial CT with multiplanar reconstruction performed using radiation dose reduction techniques.Technical factors are evaluated and adjusted to ensure appropriate moderation of exposure.Automated dose management technology is applied to adjust radiation exposure while achieving a diagnostic quality image. FINDINGS: There is 2 mm thick right frontal scalp hematoma. There is also mild right periorbital malar soft tissue swelling. Bones are intact with no evidence of acute fracture. Orbits are intact with no evidence of intraorbital hematoma. Paranasal sinuses and visualized mastoid air cells are well aerated. Mandible and temporomandibular joints are intact. 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 IMPRESSION: 1. Right frontal scalp hematoma and mild right periorbital malar soft tissue swelling. 2. No evidence of acute fracture. Intact orbits with no evidence of intraorbital hematoma. [facility]-[id number] Procedure Note Interface, Radiology Results [facility] - 05/08/2018 7:45 PM CDT EXAMINATION: CT MAXILLOFACIAL WO CONTRAST CLINICAL HISTORY: Mass lump or swelling maxface COMPARISON: Concurrent head CT on 05/08/2018 TECHNIQUE: Maxillofacial CT with multiplanar reconstruction performed using radiation dose reduction techniques. Technical factors are evaluated and adjusted to ensure appropriate moderation of exposure. Automated dose management technology is applied to adjust radiation exposure while achieving a diagnostic quality image. FINDINGS: There is 2 mm thick right frontal scalp hematoma. There is also mild right periorbital malar soft tissue swelling. Bones are intact with no evidence of acute fracture. Orbits are intact with no evidence of intraorbital hematoma. Paranasal sinuses and visualized mastoid air cells are well aerated. Mandible and temporomandibular joints are intact. 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 IMPRESSION: 1. Right frontal scalp hematoma and mild right periorbital malar soft tissue swelling. 2. No evidence of acute fracture. Intact orbits with no evidence of intraorbital hematoma. [facility]-[id number] Performing Organization Address City/State/Zipcode Phone Number [facility] [address] [place] [address] * CT Head Wo Contrast (05/08/2018 7:31 PM CDT) Narrative Performed At EXAMINATION:CT HEAD WO CONTRAST [facility] CLINICAL HISTORY:LOC COMPARISON:Head CT on 07/26/[address] on 05/08/2018. TECHNIQUE: Noncontrast head CT performed using radiation dose reduction techniques.Technical factors are evaluated and adjusted to ensure appropriate moderation of exposure.Automated dose management technology is applied to adjust radiation exposure while achieving a diagnostic quality image. FINDINGS: The brain appears unremarkable with no evidence of hemorrhage, mass lesion, or midline shift. [place]-white matter differentiation is preserved with no evidence of acute territorial infarction. Ventricles, sulci, and cisterns are age-appropriate in size and configuration. There is no extra-axial fluid collection. There is a 2 mm thick right frontal scalp hematoma. There is also partially visualized right malar soft tissue swelling. Bones are intact with no evidence of acute fracture. Orbits are intact with no evidence of intraorbital hematoma. Visualized paranasal sinuses and mastoid air cells are clear. IMPRESSION: 1. Right frontal scalp hematoma and partially visualized right malar soft tissue swelling. 2. No evidence of acute intracranial abnormality or skull fracture. [id number] Procedure Note Interface, Radiology Results Incoming - 05/08/2018 7:40 PM CDT EXAMINATION: CT HEAD WO CONTRAST CLINICAL HISTORY: LOC COMPARISON: Head CT on 07/26/[address] on 05/08/2018. TECHNIQUE: Noncontrast head CT performed using radiation dose reduction techniques. Technical factors are evaluated and adjusted to ensure appropriate moderation of exposure. Automated dose management technology is applied to adjust radiation exposure while achieving a diagnostic quality image. FINDINGS: The brain appears unremarkable with no evidence of hemorrhage, mass lesion, or midline shift. [place]-white matter differentiation is preserved with no evidence of acute territorial infarction. Ventricles, sulci, and cisterns are age-appropriate in size and configuration. There is no extra-axial fluid collection. There is a 2 mm thick right frontal scalp hematoma. There is also partially visualized right malar soft tissue swelling. Bones are intact with no evidence of acute fracture. Orbits are intact with no evidence of intraorbital hematoma. Visualized paranasal sinuses and mastoid air cells are clear. IMPRESSION: 1. Right frontal scalp hematoma and partially visualized right malar soft tissue swelling. 2. No evidence of acute intracranial abnormality or skull fracture. [facility]-[id number] Performing Organization Address City/State/Zipcode Phone Number [facility] [address] [place] [address] * Urine drugs of abuse screen (05/08/2018 7:30 PM CDT) Amphetamine screen, urine Negative [facility] DEPARTMENT OF PATHOLOGY AND GENOMIC MEDICINE Methamphetamine screen, Negative [facility] DEPARTMENT OF urine PATHOLOGY AND GENOMIC MEDICINE Barbiturate screen, urine Negative [facility] DEPARTMENT OF PATHOLOGY AND GENOMIC MEDICINE Benzodiazepine screen, Negative [facility] DEPARTMENT OF urine PATHOLOGY AND GENOMIC MEDICINE Cocaine screen, urine Negative [facility] DEPARTMENT OF PATHOLOGY AND GENOMIC MEDICINE Methadone screen, urine Negative [facility] DEPARTMENT OF PATHOLOGY AND GENOMIC MEDICINE Opiates screen, urine Negative [facility] DEPARTMENT OF PATHOLOGY AND GENOMIC MEDICINE Phencyclidine screen, Negative [facility] DEPARTMENT OF urine PATHOLOGY AND GENOMIC MEDICINE Cannabinoid screen, urine Positive (A) [facility] DEPARTMENT OF PATHOLOGY AND GENOMIC MEDICINE Tricyclic screen, urine Negative [facility] DEPARTMENT OF Comment: PATHOLOGY AND Drug screen minimum GENOMIC MEDICINE concentration of detectability Amphetamines 1000 ng/mL Methamphetamines 1000 ng/mL Barbiturates 300 ng/mL Benzodiazepines 300 ng/mL Cocaine 300 ng/mL Methadone 300 ng/mL Opiates 300 ng/mL Phencyclidine 25 ng/mL Cannabinoids 50 ng/mL Tricyclics 1000 ng/mL Negative test results indicates presumptive evidence of lack of clinically significant drug concentration in this urine specimen. Positive test results are presumptive evidence of clinically significant drug concentration in this urine specimen. Testing performed for medical purposes only. Specimen Urine Performing Organization Address City/State/Zipcode Phone Number [facility] [address] [place] [address] PATHOLOGY AND GENOMIC MEDICINE * Acetaminophen level (05/08/2018 7:30 PM CDT) Acetaminophen level <15.0 10.0 - 30.0 ug/mL [facility] DEPARTMENT OF Comment: PATHOLOGY AND Therapeutic GENOMIC MEDICINE 10-30 ug/mL Possible Toxicity 150-200 ug/mL Probable Toxicity >200 ug/mL Specimen Plasma specimen Performing Organization Address [facility] Phone Number [facility] DEPARTMENT [id number] [place] [address] [place] [address] PATHOLOGY AND GENOMIC MEDICINE * Salicylate level (05/08/2018 7:30 PM CDT) Salicylate <0.3 (L) 3.0 - 30.0 mg/dL [facility] DEPARTMENT OF PATHOLOGY AND GENOMIC MEDICINE Specimen Plasma specimen Performing Organization Address [facility] Phone Number [address] [place] [address] PATHOLOGY AND GENOMIC MEDICINE * SPLINT APPLICATION (05/03/2018 6:40 PM CDT) Narrative Performed At [facility] 05/03/20186:40 PM Splint Application Performed by: BONI ALBA Authorized by: JASON JAMES Consent: Consent obtained:Verbal Consent given by:Patient Risks discussed:Discoloration, numbness, pain and swelling Pre-procedure details: Sensation:Normal Procedure details: Laterality:Left Location:Ankle Ankle:L ankle Splint type:CAM walker boot Post-procedure details: Pain:Improved Sensation:Normal Patient tolerance of procedure:Tolerated well, no immediate complications * XR Ankle 3+ Vw Left (05/03/2018 4:44 PM CDT) Narrative Performed At EXAMINATION:XR ANKLE 3VW LEFT [facility] CLINICAL HISTORY:traumaecchymosis COMPARISON:None. IMPRESSION: There is a subtle nondisplaced fracture of the distal fibula/lateral malleolus, below the level of the tibial plafond. There is overlying soft tissue swelling. Ankle mortise is preserved. [facility]-[id number] Procedure Note Hm Interface, Radiology Results Incoming - 05/03/2018 4:55 PM CDT EXAMINATION: XR ANKLE 3 VW LEFT CLINICAL HISTORY: trauma ecchymosis COMPARISON: None. IMPRESSION: There is a subtle nondisplaced fracture of the distal fibula/lateral malleolus, below the level of the tibial plafond. There is overlying soft tissue swelling. Ankle mortise is preserved. [facility]-[id number] Performing Organization Address City/State/Zipcode Phone Number [facility] [address] [place] [address] * XR Knee 4+ Vw Right (05/03/2018 4:44 PM CDT) Narrative Performed At EXAMINATION:XR KNEE 4VW RIGHT [facility] CLINICAL HISTORY:Knee paininitial exam COMPARISON:None. IMPRESSION: No acute fracture. Joint spaces are preserved. Soft tissues are unremarkable. [facility]-[id number] Procedure Note Interface, Radiology Results Incoming - 05/03/2018 4:58 PM CDT EXAMINATION: XR KNEE 4 VW RIGHT CLINICAL HISTORY: Knee pain initial exam COMPARISON: None. IMPRESSION: No acute fracture. Joint spaces are preserved. Soft tissues are unremarkable. [facility]-[id number] Performing Organization Address [facility]/Zipcode Phone Number [facility] [address] [place] [address] * XR Ribs W Pa Chest Right (05/03/2018 4:44 PM CDT) Narrative Performed At EXAMINATION:XR RIBSW PA CHEST RIGHT [facility] CLINICAL HISTORY:R rib painfall COMPARISON:None. IMPRESSION: Frontal view of the chest imaged no pneumothorax. No acute rib fracture seen. There are several old healed fracture rib fractures on the right. [facility]-[id number] Procedure Note Interface, Radiology Results Incoming - 05/03/2018 4:56 PM CDT EXAMINATION: XR RIBS W PA CHEST RIGHT CLINICAL HISTORY: R rib pain fall COMPARISON: None. IMPRESSION: Frontal view of the chest imaged no pneumothorax. No acute rib fracture seen. There are several old healed fracture rib fractures on the right. [facility]-[id number] Performing Organization Address City/State/Zipcode Phone Number [facility] [address] [place] [address] after 01/21/2018 Insurance Payer Benefit Subscriber ID Type Phone Address Plan / Group [facility] MEDICARE [facility] DUAL xxxxxxxxx HMO COMPLETE [facility] MEDICAID [facility] xxxxxxxxx HMO [facility] MEDICAID MEDICAID xxxxxxxxx Medicaid Advance Directives Patient has advance care planning documents on file. For more information, luc e contact: Reji Sharma [address] [place] [address]
[2019-01-22] MEDS ORDERED: HYDROCODONE/APAP 10MG-325MG TAB ONE (02:53)
[2019-01-22] MEDS ORDERED: VITAMIN D1000 UNI1 PO (03:11)
--- NOTE | 2019-01-22 03:18 | Diagnostic Imaging Report ---
Exam: Bilateral wrist Series. History: Bilateral wrist pain after fall Comparison: None. Findings: Right: 3 views of the right wrist. There is decreased bone mineralization. Acute, comminuted, likely intra-articular and displaced fracture of the distal radial metaphysis with dorsal angulation of the distal fracture fragment. The carpal bones remain aligned with the distal fracture fragment. Deformity of the distal ulna are metadiaphysis, likely reflecting an old fracture. Other bony structures are intact. No abnormal soft tissue calcification or mass. Soft tissue swelling surrounding the wrist.. Left:3 views of the left wrist. There is decreased bone mineralization. Acute, mildly displaced comminuted intra-articular fracture of the distal radial metaphysis, with mild dorsal angulation of the distal fracture fragment. The carpal bones remain aligned with the distal fracture fragment. Other bony structures are intact. No abnormal soft tissue calcification or mass. Soft tissue swelling surrounding the wrist. Impression: 1. Bilateral distal radial metaphysis acute, comminuted, intra-articular mildly displaced fractures, as described. Signed by: Dr. Fredy Hollingsworth M.D. on 01/22/2019 3:15 AM
[2019-01-22] MEDS ORDERED: HYDROCODONE/APAP 10MG-325MG TAB PO ONE (03:45)
[2019-01-22] MEDS ORDERED: NEOMYCIN/POLYMYX/BACITR OINT 0.9 GM PKT TOP PRN (04:00)
[2019-01-22] MEDS ORDERED: NEOMYCIN/POLYMYX/BACITR OINT 0.9 GM PKT ONE (04:04)
[2019-01-22] MEDS ORDERED: FENTANYL 75MCG/HR PATCH TD SCH (05:00)
[2019-01-22] MEDS: ONDANSETRON HCL INJ 2MG/ML 2ML 2 MG/ML VIAL IV PRN ×2 (06:13→11:42)
[2019-01-22] MEDS: MORPHINE SULFATE INJ 4 MG/ML INJ 1ML IV PRN ×2 (06:13→11:42)
--- NOTE | 2019-01-22 06:50 | NUR ---
ASSUMED CARE AT THIS TIME. PATIENT LAYING IN BED WITH EYES CLOSED. SKIN WARM AND DRY. RESP EVEN AND UNLABORED. NO SIGNS OF ACUTE DISTRESS NOTED AT THIS TIME.
--- NOTE | 2019-01-22 07:08 | NUR ---
DR ALICEA AT BEDSIDE FOR PATIENT EVAL.
[2019-01-22] MEDS ORDERED: VENLAFAXINE HCL 75 MG CAPCR PO SCH (09:00)
[2019-01-22] MEDS ORDERED: VENLAFAXINE HCL 300 MG PO SCH (09:00)
--- NOTE | 2019-01-22 09:10 | NUR ---
PATIENT LAYING IN BED WITH EYES CLOSED. SKIN WARM AND DRY. RESP EVEN AND UNLABORED. NO SIGNS OF ACUTE DISTRESS NOTED AT THIS TIME.
[2019-01-22 09:50] VITALS: BP 175/93
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
--- NOTE | 2019-01-22 09:50 | NUR ---
PATIENT YELLING,CRYING AND MOANING, THRASHING IN BED. REDIRECTED ATTENTION,POSITIVE REASSURANCE GIVEN. PATIENT REPOSITIONED IN BED FOR COMFORT. RESP EVEN AND UNLABORED. SKIN WARM AND DRY. NO SIGN OF ACUTE DISTRESS NOTED AT THIS TIME. PATIENT ANXIOUS AND CRYING, EDUCATED PATIENT DEEP BREATHING EXECISES AND POSITIVE COOPING MECHANISMS,VERBALIZED UNDERSTANDING.
--- NOTE | 2019-01-22 09:50 | NUR ---
PT ALERT RESP EVEN AND UNLABORED AT THIS TIME NO DISTRESS NOTED, PT ABLE TO MAKE NEEDS KNOWN, PT HAS SPLINTS ON BOTH WRIST, DRESSING CLEAN DRY AND INTACT, PT ORIENTED TO ROOM AND CALL LIGHT, BED IN LOWEST POSITION, BED RAILS UP X 2, CALL LIGHT IN REACH.
--- NOTE | 2019-01-22 12:01 | History and Physical ---
REASON FOR ADMISSION: The patient is a 48-year-old presenting with fall, fell backwards with bilateral wrist fractures. HISTORY OF PRESENTING ILLNESS: Ms. Dania Norton with a history of hepatitis C, history of alcoholism, history of hypertension, history of hyperlipidemia, history of CAD in the past, was in usual state of health until the patient was scheduled for her knee operation. The patient was in the gas station pumping gas and she fell backward, tried to break her fall with both her wrists, unfortunately sustained bilateral wrist fractures. PAST MEDICAL HISTORY: History of hypertension, history of hyperlipidemia, history of chronic pain syndrome, history of hepatitis C, history of coronary artery disease in the past, history of liver failure, and history of chronic depression. SOCIAL HISTORY: History of EtOH positive, history of smoking positive, and no IV drug abuse. The patient also has history of severe depression. MEDICATIONS: Medicine she is taking at this time is just Effexor. The patient does see correction worker. She has not been sober for the last six months, therefore no liver treatment has been done at this time. PAST SURGICAL HISTORY: History of trauma surgery, hysterectomy when she was 34 years old, history of bowel obstruction in the past but no surgery, laparoscopic was done. FAMILY HISTORY: Positive for diabetes and congestive heart failure and hypertension in mother. PHYSICAL EXAMINATION: VITAL SIGNS: Temperature is 98.0, pulse of 69, respirations of 18, blood pressure is 124/59. HEENT: Normocephalic, atraumatic. Pupils are reactive to light and accommodation. CVS: S1, S2 normal. Regular rhythm. ABDOMEN: Nontender and nondistended. EXTREMITIES: Bilateral upper extremities in wrists splints. Otherwise, left lower extremity with knee scrapes and also with effusion in it. LABORATORY VALUES: The patient's hemoglobin is 11.5, hematocrit of 33.7. All the rest of chemistries are within normal limits. ASSESSMENT: 1. Status post fall with comminuted bilateral wrist fractures. 2. History of hepatitis. 3. History of alcoholism. 4. History of depression. PLAN: Plan is to continue to monitor the patient's pain. Fentanyl patch has been applied on the patient. Dr. Richards is to see the patient this morning, after this can be discharged depending on clinical course. At this time, she needs pain control and also may need reduction, we will leave that to Ortho. Further recommendation per clinical course and also we will restart her antidepressants. MD PATRICIO Ivy/SEBASTIANL /[id number]
[2019-01-22 12:20] VITALS: BP 176/87
--- NOTE | 2019-01-22 14:25 | NUR ---
Visit made by the Spiritual Care Department Pastoral Visitor, Payton Reaves. PV provided pastoral presence, prayer, hospitality, and supportive listening. Pastoral Visitor informed pt/family of the scope of [employer] and availability. DURAN DASH Postal Clerk Spiritual Care Department O: [phone] Pager: [phone] ([phone] number calling from)
[2019-01-22 15:24] VITALS: BP 171/87
--- NOTE | 2019-01-22 16:01 | NUR ---
GAVE INFORMATION FOR LOCAL [facility]LTERS AND LET KNOW THAT SHE IS DISCHARGED, SHE STATES SHE HAS CALLED HER FRIEND TO COME PICK HER UP BUT BELIEVES SHE IS IN A MEETING, GAVE PACKET OF INFORMATION WITH COMMUNITY [employer]OURCES FOR ASSISTANCE WITH LOW TO NO INCOME TO PATIENT. RESOURCES THAT PATIENT MAY BE ABLE TO FOLLOW UP UPON DISCHARGE. PT EDUCATED ON EACH RESOURCE AND UNDERSTANDING HOW TO FOLLOW UP TO SEE IF QUALIFIED FOR EACH RESOURCE.
--- NOTE | 2019-01-22 17:15 | NUR ---
PT DISCHARGED VIA CAB VOUCHER TO [facility] CAB # [id number], PT ALERT RESP EVEN AND UNLABORED AT THIS TIME NO DISTRESS NOTED, PT ABLE TO MAKE NEEDS KNOWN, IV SITE REMOVED, NO SWELLING NO REDNESS TO SITE. PT HAS HER PERSONAL BELONGINGS, PT WAS ALSO ASKED TO FOLLOW UP WITH DR. COYLE OUT PT FOR BILAT. WRIST FX.
== END 2019-01-22 17:57 | disposition home or self-care (01) ==
LOC: ER 01:47 → ERHOLD 06:11 → IMCU 10:00
PROVIDERS: ADMIT Family Medicine; ATTEND Family Medicine
DX: S52.572A Other intraarticular fracture of lower end of left radius, initial encounter for closed fracture (principal); S52.571A Other intraarticular fracture of lower end of right radius, initial encounter for closed fracture; W18.39XA Other fall on same level, initial encounter; Y93.89 Activity, other specified; Y92.524 Gas station as the place of occurrence of the external cause; Z86.19 Personal history of other infectious and parasitic diseases; F10.21 Alcohol dependence, in remission; I10 Essential (primary) hypertension; E78.5 Hyperlipidemia, unspecified; I25.10 Atherosclerotic heart disease of native coronary artery without angina pectoris; Z83.3 Family history of diabetes mellitus; Z82.49 Family history of ischemic heart disease and other diseases of the circulatory system; F32.9 Major depressive disorder, single episode, unspecified
CPT/HCPCS: 73110; 99284; G0378; J2270; J2405

== ENCOUNTER 2019-07-18 17:25 | Emergency (ER) | payer MEDICARE ==
[~2019-07-18] VITALS: Ht 167.6 cm; Wt 72.6 kg
[~2019-07-18 17:25] MED LIST changes: +VITAMIN D1000 UNI1 PO
[2019-07-18] MEDS ORDERED: SODIUM CHLORIDE 0.9% 500ML 500 ML IV STA (17:54)
[2019-07-18 18:10] LABS: BASOPHILS # (AUTO) 0.1 (0.0-0.1); BASOPHILS % 0.8 % (0.0-1.0); EOSINOPHILS # (AUTO) 0.3 (0.0-0.4); EOSINOPHILS % 2.9 % (0.0-6.0); HEMOGLOBIN 10.1 g/dL (12.0-16.0); LYMPHOCYTES # (AUTO) 3.5 (1.0-3.2); LYMPHOCYTES % 41.6 % (18.0-39.1); MEAN CORPUSCULAR HEMOGLOBIN 30.4 pg (28-32); MEAN CORPUSCULAR HGB CONC 34.8 g/dL (31-35); MEAN CORPUSCULAR VOLUME 87.3 fL (81-99); MONOCYTES # (AUTO) 0.9 (0.2-0.8); MONOCYTES % 10.7 % (4.4-11.3); NEUTROPHILS # (AUTO) 3.7 (2.1-6.9); NEUTROPHILS % 43.8 % (38.7-80.0); PLATELET COUNT 120 x10e3/uL (140-360); RED BLOOD COUNT 3.32 x10e6/uL (3.6-5.1); RED CELL DISTRIBUTION WIDTH 18.6 % (11.7-14.4)
[2019-07-18 18:25] LABS: ALANINE AMINOTRANSFERASE 59 IU/L (0-55); ALBUMIN 2.4 g/dL (3.5-5.0); ALBUMIN/GLOBULIN RATIO 0.5 (0.8-2.0); ALKALINE PHOSPHATASE 167 IU/L (40-150); ANION GAP 9.7 mmol/L (8-16); BLOOD UREA NITROGEN 14 mg/dL (7-26); BUN/CREATININE RATIO 18 (6-25); CALCIUM 8.5 mg/dL (8.4-10.2); CARBON DIOXIDE 22 mmol/L (22-29); CHLORIDE 108 mmol/L (98-107); CREATININE, SERUM 0.79 mg/dL (0.57-1.11); EST GLOMERULAR FILTRATION RATE > 60 ML/MIN (60-); GLUCOSE 146 mg/dL (74-118); POTASSIUM 3.7 mmol/L (3.5-5.1); SODIUM 136 mmol/L (136-145)
--- NOTE | 2019-07-18 18:58 | Diagnostic Imaging Report ---
CT BRAIN WO HISTORY: Confusion COMPARISON: Report from head CT dated 10/12/2010 TECHNIQUE: Noncontrast axial scans were obtained from skull base to the vertex. Coronal and sagittal reconstructions obtained from the axial data. One or more of the following dose reduction techniques were used: Automated exposure control, adjustment of the mA and/or kV according to patient size, and/or utilization of iterative reconstruction technique. Beam hardening artifacts obscure some details. DISCUSSION: Scalp/Skull: Unremarkable. Brain sulci: Appropriate for patient's age. Ventricles: Normal in size and configuration. No hydrocephalus. Extra-axial spaces: No masses or fluid collections. Parenchyma: Mild periventricular white matter hypodensities are likely chronic microvascular ischemic changes. Otherwise, no mass, hemorrhage, or large vascular territory acute infarct. Dural sinuses: No abnormal densities. Sellar/Suprasellar region: Intact. Skull base: Intact. Incidental findings: Mild atlantoaxial and left atlantooccipital arthrosis is present. IMPRESSION: 1. No acute intracranial abnormalities. 2. Mild supratentorial chronic microvascular ischemic change. Signed by: Dr. Yoel Redman M.D. on 07/18/2019 6:54 PM
[2019-07-18 19:05] LABS: AMPHETAMINES SCREEN,URINE POSITIVE (NEGATIVE); BENZODIAZEPINES SCREEN,URINE NEGATIVE (NEGATIVE); PHENCYCLIDINE SCREEN,URINE NEGATIVE (NEGATIVE); PREGNANCY TEST, URINE NEGATIVE (NEGATIVE)
[2019-07-18] MEDS ORDERED: LACTULOSE SYRUP 20 GM/30 ML UDC ONE (19:23)
[2019-07-18 19:26] VITALS: BP 147/70
[2019-07-18] MEDS ORDERED: LACTULOSE SYRUP 20 GM/30 ML UDC PO ONE ×2 (19:30)
== END 2019-07-18 19:35 | disposition home or self-care (01) ==
LOC: ER 17:25
DX: R53.1 Weakness (principal); K72.90 Hepatic failure, unspecified without coma; R94.5 Abnormal results of liver function studies; F15.10 Other stimulant abuse, uncomplicated
CPT/HCPCS: 36415; 70450; 80053; 80307; 81025; 82140; 85025; 99282